=== PATIENT | male | born 1950 | race Caucasian/White ===

== ENCOUNTER → 2019-08-31 08:15 | Outpatient (BNVA) | payer MEDICARE, SELFPAY | PROVIDERS: Family Provider Registered Nurse; PCP Registered Nurse; Visit Provider Urology | DX: N39.9 Disorder of urinary system, unspecified (principal); N31.8 Other neuromuscular dysfunction of bladder; R97.20 Elevated prostate specific antigen [PSA] | CPT/HCPCS: 84153 ==

== ENCOUNTER → 2019-09-23 09:59 | Outpatient (BNVA) | payer MEDICARE, SELFPAY | PROVIDERS: Family Provider Registered Nurse; PCP Registered Nurse; Visit Provider Registered Nurse | DX: E78.5 Hyperlipidemia, unspecified (principal); E78.6 Lipoprotein deficiency | CPT/HCPCS: 80053; 80061 ==

== ENCOUNTER → 2020-04-05 17:55 | Outpatient (BNVA) | payer MEDICARE, SELFPAY | PROVIDERS: Family Provider Registered Nurse; PCP Registered Nurse; Visit Provider Urology | DX: R97.20 Elevated prostate specific antigen [PSA] (principal); N31.8 Other neuromuscular dysfunction of bladder; R82.71 Bacteriuria | CPT/HCPCS: 80053; 81001; 84153; 87077; 87086; 87186 ==

== ENCOUNTER → 2020-05-04 11:10 | Outpatient (BNVA) | payer MEDICARE, SELFPAY | PROVIDERS: Family Provider Registered Nurse; PCP Registered Nurse; Visit Provider Urology | DX: R82.71 Bacteriuria (principal) | CPT/HCPCS: 80053; 87077; 87086; 87186 ==

== ENCOUNTER → 2020-08-21 08:42 | Outpatient (BNVA) | payer MEDICARE, SELFPAY | PROVIDERS: Family Provider Registered Nurse; PCP Registered Nurse; Visit Provider Registered Nurse | DX: Z13.6 Encounter for screening for cardiovascular disorders (principal); E78.5 Hyperlipidemia, unspecified; R33.9 Retention of urine, unspecified; J41.0 Simple chronic bronchitis; N39.0 Urinary tract infection, site not specified; E78.2 Mixed hyperlipidemia; Z78.9 Other specified health status; N31.8 Other neuromuscular dysfunction of bladder; R97.20 Elevated prostate specific antigen [PSA]; R82.71 Bacteriuria; N40.1 Benign prostatic hyperplasia with lower urinary tract symptoms | CPT/HCPCS: 80053; 80061; 81000; 84153; 85025; 87077; 87086; 87184 ==

== ENCOUNTER → 2020-10-04 09:12 | Outpatient (BNVA) | payer MEDICARE, SELFPAY | PROVIDERS: Family Provider Registered Nurse; PCP Registered Nurse; Visit Provider Urology | DX: R97.20 Elevated prostate specific antigen [PSA] (principal); A49.9 Bacterial infection, unspecified; N39.0 Urinary tract infection, site not specified; R82.71 Bacteriuria; N31.8 Other neuromuscular dysfunction of bladder | CPT/HCPCS: 81003; 84153 ==

== ENCOUNTER → 2020-10-19 09:52 | Outpatient (BNVA) | payer MEDICARE, SELFPAY | PROVIDERS: Family Provider Registered Nurse; PCP Registered Nurse; Visit Provider Registered Nurse | DX: J41.0 Simple chronic bronchitis (principal); Z20.822 Contact with and (suspected) exposure to COVID-19; J06.9 Acute upper respiratory infection, unspecified; F17.210 Nicotine dependence, cigarettes, uncomplicated | CPT/HCPCS: 87635 ==

== ENCOUNTER → 2020-10-27 12:46 | Outpatient (BNVA) | payer MEDICARE, SELFPAY | PROVIDERS: Family Provider Registered Nurse; PCP Registered Nurse; Visit Provider Urology | DX: R97.20 Elevated prostate specific antigen [PSA] (principal) | CPT/HCPCS: 88305 ==

== ENCOUNTER 2020-11-10 07:29 | Outpatient (CLI) | payer MEDICARE, SELFPAY ==
--- NOTE | 2020-11-10 07:36 | NM_ITS ---
WS: [id number] NUCLEAR MEDICINE WHOLE BODY BONE SCAN HISTORY: PROSTATE CANCER COMPARISON: None available. TECHNIQUE: The patient was injected with 25.5 mCi of Technetium 99m HDP and serial whole-body scintig huong have been performed with anterior and posterior images. Focal moderate uptake in the cervical spine on the RIGHT near C4-5. Radiograph was performed today an d this corresponds to facet joint arthritis. Otherwise no bone or rib lesions appreciated to suspect metastatic bone disease. Moderate AC joint and glenohumeral joint and knee joint and wrist joint arth ritis. Pelvis is negative. Normal soft tissue uptake is normal renal uptake. NM/NM bone scan whole body* 19703 IMPRESSION: 1. Moderate uptake in the RIGHT cervical spine at C4-5 corresponds to radiogra phic evidence for facet joint arthritis. 2. No evidence for metastatic bone disease.
--- NOTE | 2020-11-10 09:00 | CT_ITS ---
WS: [id number] CT ABDOMEN AND PELVIS WITH AND WITHOUT CONTRAST HISTORY: PROSTATE CANCER TECHNIQUE: Unenhanced 5 mm axial imaging first performed through the abdomen. Post contrast imaging t hrough the abdomen and pelvis. Oral contrast has not been provided. Sagittal and coronal reformats a re submitted. All CT scans at [facility] use at least one of these dose optimization tech niques: automated exposure control; mA and/or kV adjustment per patient size (includes targeted exams where dose is matched to clinical indication); or iterative reconstruction. CONTRAST: Omnipaque 300; 95 mL IV. DLP: 1882.75 mGy.cm COMPARISON: 10/18/2014 Marked hyperexpansion and emphysematous changes at the lung bases. Heart size is normal. Moderate cor onary artery calcifications. Small hiatal hernia. Normal liver and gallbladder. Splenic granulomatous with normal size spleen. No pancreas abnormality. No bile duct dilatation. Normal adrenal glands. Abdominal aorta: Moderate dilatation of the abdominal aorta. Maximum diameter of 3.7 cm in the infrar enal aorta. Aneurysm extends over a length of 5.5 cm. There is near circumferential thrombus and inti mal thickening. Asymmetric intimal thickening measures 9.4 mm over the posterior LEFT lateral aorta. The lumen remains widely patent. Mild atherosclerosis involving the origins of the celiac axis and SM A. Normal renal arteries. RADHA may be occluded. RIGHT kidney: 9.6 cm in length. Hypoattenuating mass from the upper pole measures 1.5 cm, new lesion. There is mild enhancement. There is an additional 1.7 cm hypoattenuating mass which is probably a cy st from the medial upper pole, new. There is a larger cyst measuring 2.5 x 3.0 cm from the posterior mid kidney which is stable. No obstruction or ureteral dilatation. LEFT kidney: 8.6 cm in length. No hydronephrosis or mass. No renal obstruction. Urinary bladder: Moderately distended urinary bladder. There is moderate diffuse wall thickening rafy uring up to 8 mm on the RIGHT. No focal area of enhancement. The asymmetry is slightly greater on the RIGHT. Prostate gland is enlarged indenting into the posterior bladder. Prostate gland extends over length of 5.7 cm x 4.6 x 4.2 cm. There is mild diffuse enhancement within the prostate. The appendix is normal. Diffuse moderate constipation. Mild sigmoid diverticulosis without acute dive rticulitis. No adenopathy. Advanced degenerative disc disease at L4-5 and L5-S1. L3 anterolisthesis by [address]/CT abdomen pelvis wo/w [id number] IMPRESSION: 1. No evidence for osteoblastic prostate metastatic disease. 2. Infrarenal abdominal aortic aneurysm with a maximum diameter 3.7 cm. Aneury sm is new since 2014. Recommend imaging follow-up for 3.7 cm abdominal aorta an eurysm is 2 years. 3. Enhancing mass in the upper pole of the RIGHT kidney is new since 2014 susp icious but not confirmatory for renal cell neoplasm. Maximum diameter of 1.5 cm . Additional indeterminate mass probably cysts in the medial upper pole RIGHT k idney. Recommend renal mass CT protocol follow-up in 6-12 months. Stability nee ds to be documented. 4. No renal obstruction. 5. Sigmoid diverticulosis. 6. Mild diffuse bladder wall thickening is probably on the basis of outlet obs truction.
[2020-11-10 09:01] LABS: Blood Urea Nitrogen 15 mg/dL (8-23); Glomerular Filtration Rate 66.4 mL/min (90-130)
[2020-11-10] MEDS: iohexol 300 mg/mL 100 mL Btl IV (09:15)
--- NOTE | 2020-11-10 10:14 | XR_ITS ---
WS: [id number] CERVICAL SPINE 3 VIEWS HISTORY: BONE SCAN COMPARISON 2 VIEWS COMPARISON: Bone scan 11/10/2020. Focal area of abnormal uptake on the bone scans corresponds to significant facet joint arthritis on t he RIGHT at C4-5. There is significant facet joint arthritis bilaterally. No fractures. Lateral masses of C1 and C2 are aligned. Significant disc space narrowing at C4-5, C5-6 and C6-7 with endplate osteophytes. XR/XR cervical spine 3V* [id number] IMPRESSION: Bilateral facet joint arthritis. Greatest on the RIGHT at C4-5. Corresponds to the abnormality on recent bone scan. No destructive bone process identified.
== END 2020-11-10 07:30 | disposition home or self-care (01) ==
LOC: CT 07:31
PROVIDERS: PCP Registered Nurse; Visit Provider Urology
DX: C61 Malignant neoplasm of prostate (principal); K57.30 Diverticulosis of large intestine without perforation or abscess without bleeding; N28.89 Other specified disorders of kidney and ureter
CPT/HCPCS: 36415; 72040; 74178; 78306; 82565; 84520; A9561

== ENCOUNTER 2020-11-20 09:43 | Outpatient (CLI) | payer MEDICARE, SELFPAY ==
[2020-11-20 13:09] LABS: Testosterone Total 671.3 ng/dL (193-740)
--- NOTE | 2020-11-20 15:28 | ONC CON_ITS ---
Dr. Espino New Patient Note Patient: Yahaira Reyes Unit #: [id number]: 1950 Dicatated By: Ian Espino M.D.Date of Visit: Nov 20, 2020 Onc MED New Patient/Consult Referring Physician: Dr. Masood Baca M.D. History of Present Illness: Mr. Yahaira Reyes, is a 70-year-old gentleman with longstanding history of mildly elevated PSA, first evaluated was in February 2009 for increased PSA at 4.46 and with positive family history of prostate cancer at that time his VARINDER was 3+ and patient underwent TRUS P in February 2009 which showed mild chronic inflammation but no evidence of malignancy since then during follow-up his PSA was ranging from 3.8-7.8 and patient was managed for BPH as well as recurrent urinary tract infection and episode of hematuria for which he underwent cystoscopy showed no abnormality. And recently in October 2020 his follow-up PSA had increased to 10.8 and on VARINDER patient was found to have new development of right-sided firmness for which on October 27, 2020 he underwent TRUSP/biopsy which showed large volume, high-grade prostate cancer pathology confirmed 6 out of 11 biopsies positive for adenocarcinoma all on the right side, all with Segun score 5+5, on November 10, 2020 he underwent bone scan as well as CT scan of abdomen pelvis which showed no evidence of metastatic bone disease but moderate uptake in the right cervical spine C4-5 and x-ray of C-spine done on November 10, 2020 confirmed bilateral facet joint arthritis correspond to abnormality seen on bone scan. And no pelvic lymphadenopathy, infrarenal abdominal aortic aneurysm with a maximum diameter of 3.7 and aneurysm is new since 2014. Enhancing mass in the upper pole of right kidney is new since 2015 size 1.5 cm., Patient denies any bone pain, but use catheter for urination, denies any weight loss denies any fever or chills denies any nausea or vomiting diarrhea constipation. Past Medical History: Mr. Cruz medical history consists of hyperlipidemia and inguinal hernia. Past Surgical History: Mr. Cruz surgical/procedural history consists of knee surgery and L3-L4 laminectomy. Medications: Albuterol Sulfate HFA 2 Puff(s) (of 108 (90 base) mcg/act) Aerosol, solution Inhalation q 6 hours, Allergy 1 Tablet (of 10 mg) Oral daily, Ascorbic Acid 1 Tablet (of 500 mg) Tablet, chewable Oral b.i.d., Budesonide-Formoterol Fumarate 2 Puff(s) (of 160-4.5 mcg/act) Aerosol Inhalation b.i.d., Finasteride 1 Tablet (of 5 mg) Oral daily, Methenamine Hippurate 1 Tablet (of 1 g) Oral b.i.d., Pravachol 1 Tablet (of 40 mg) Oral daily, Saw [place] 1 Caplet (of 450 mg) Capsule Oral daily, Zinc 1 Caplet (of 15 mg) Capsule Oral daily Allergies: No Known Allergies. Social History: Mr. Reyes is . He is a daily smoker who smokes 2.0 packs/day. He has no history of drinking. He has indicated exposure to the following products: cigarettes. Smokes Cigars and Cigarettes Daily. Family History: Mr. Reyes's mother at age 60: coronary artery disease, and chronic obstructive pulmonary disease. Mr. Reyes's father at age 70: Cancer. Mr. Reyes has 1 sister who is alive. Review Of Symptoms: Review of Systems is not available for this patient. Vital Signs: Performed on Nov 20, 2020 10:49: 0, 0, 0.00, 0.00 sq.m, 97 %, 60 /min, 18 /min, 116/75 mm(hg), 98.0 F (LOW), and 162.4 lbs (HIGH). Performance Status: 0 - Fully active, able to carry on all predisease activities without restrictions. (ECOG) Physical Examination: ENMT - No mouth sores, no thrush, no jaundice, Respiratory - Lungs are clear to auscultation, Cardiovascular - Regular rate and rhythm of heart, Abdomen - Soft, bowel sounds present, Extremities - No visible edema. Lab/Imaging: Most recent lab results are not available for this patient. Impression: High-grade, large volume adenocarcinoma prostate per TRUSP/biopsy of right side prostate gland, done on October 27, 2020 Final pathology report confirmed 6 out of 11 biopsy positive for CHARGE ACCOUNT CLERK, with percent of involvement ranging from 50% to 100% with all Segun score 5+5 cT2a or 2b ,Nx,Mx Very high risk (> 4 cores involved, Segun score 5+5) Plan: Discussed with patient regarding his pathology, bone scan and CT scan of abdomen pelvis findings which showed no evidence of metastatic disease but pathology confirmed, right sided prostate gland involvement , 6 out of 11 biopsies were positive for malignancy , percent ranging from 50% to 100% with Segun score 5+5 in all core biopsies which will make him very high risk. Treatment options including surgery versus ADT for 1 to 3 years plus EBRT plus minus docetaxel or EBRT plus brachytherapy plus ADT for 1 to 3 years., As per patient's discussion with Dr. Baca urologist, surgery upfront may not be an appropriate Option, moreover, patient is interested in hormonal therapy / radiation therapy, May consider chemotherapy too All the side effects, possible benefits associated with ADT with Casodex/Zoladex including but not limited to hot flashes, weight gain, mood swings, gynecomastia, bone demineralization, muscle wasting were mentioned and patient expressed full understanding and accepted the treatment, will give him prescription for Casodex 50 mg p.o. daily which he will continue during radiation therapy and also consider starting with Zoladex 10.8 mg every 3 months, will refer him to radiation oncology for evaluation and once radiation therapy is concluded, will consider docetaxel every 3 weeks 4-6 cycles and While he will continue with Zoladex alone for 1 to 3 years., In the meantime , we will obtain baseline testosterone and PSA level. Patient return to clinic 1 month after dose of Zoladex with CBC CMP PSA and testosterone Signed By: Ian Espino M.D. <<Signature on File>>
== END 2020-11-20 09:44 | disposition home or self-care (01) ==
PROVIDERS: PCP Registered Nurse; Visit Provider Internal Medicine Hematology & Oncology
DX: C61 Malignant neoplasm of prostate (principal); R97.20 Elevated prostate specific antigen [PSA]; Z79.899 Other long term (current) drug therapy
CPT/HCPCS: 36415; 84153; 84403; 99205

== ENCOUNTER 2020-11-27 07:03 | Outpatient (CLI) | payer MEDICARE, SELFPAY ==
--- NOTE | 2020-11-27 14:00 | N.ONRAD NP_ITS ---
Radiation Oncology Consultation Patient Name: Yahaira Reyes Date of : 1950 Date of Service: 11/27/2020 Attending Physician: Freddy Petersen M.D. Yahaira Reyes was seen in consultation this afternoon at the request of Manjit Espino M.D. for consideration of prostate radiotherapy for the management of his recently diagnosed prostate cancer. He initially was identified to have an elevated PSA level (4.5 ng/mL) in February 2009. A transrectal ultrasound-guided biopsy was negative for malignancy. His PSA values remained relatively stable until a PSA obtained in September of 2020 was identified to be 14.1 ng/mL. Digital rectal exam identified right sided firmness. A TRUS biopsy performed on October 27, 2020 demonstrated a prostate gland measuring 50 cc with right lobar hypoechoic lesions present. Pathology (report personally reviewed in [employer]) diagnosed and adenocarcinoma the prostate gland symptom score of 5+5 = 10 involving the right lateral apex, right lateral mid gland, right lateral base, right apex, right mid gland, and right base, respectively. Perineural and fat/muscle invasion was described. A nuclear medicine bone scintigraphy scan and an abdominopelvic CT scan (independently visualized in [facility]) were negative for metastatic disease. The patient presents for radiotherapeutic options. I discussed with Mr. Reyes the AJCC clinical stage IIIC (T2bN0) very high-risk stratification corresponding to his prostate cancer. I also reviewed the National Comprehensive Cancer Network Guidelines recommending androgen deprivation therapy, external beam radiotherapy with or without brachytherapy and consideration for docetaxel chemotherapy. The admonition by the NCCN was established by the RTOG 0521 trial that enrolled patients with high-risk non-metastatic prostate cancer to receive androgen suppression plus radiotherapy with or without adjuvant docetaxel chemotherapy. This study demonstrated improved overall survival and disease-free survival in the chemotherapy arm. I also reviewed GETUG???12 study which also enrolled high-risk localized prostate cancer patients to androgen suppression and docetaxel chemotherapy with estramustine or androgen suppression alone. Updated results published in abstract form continued to demonstrate a relapse free survival with the administration of chemotherapy. I would endorse a 7-1/2 week course of pelvic and prostate radiotherapy. Prior to commencement of radiotherapy, neoadjuvant total androgen suppression (Zoladex and Casodex) will be prescribed. A radiotherapy planning CT scan with contrast will be obtained to delineate the target volumes. Germline genetic testing will be ordered on account of patient???s very-high risk stratification. I also discussed potential adverse events related to pelvic radiotherapy. The patient has verbalized understanding would like to proceed as advised. His medical treatment plan was discussed with Manjit Espino M.D. Signed by: Dr. Freddy Petersen 11/27/2020 2:07:01 PM
[2020-11-27] MEDS: lidocaine 1% INJ 20 mL INJECTION (14:20)
[2020-11-27] MEDS: goserelin acetate 10.8 mg Implant IM (14:35)
== END 2020-11-27 07:04 | disposition home or self-care (01) ==
PROVIDERS: Absent Provider Radiology Radiation Oncology; PCP Registered Nurse; Visit Provider Internal Medicine Hematology & Oncology
DX: C61 Malignant neoplasm of prostate (principal); R97.20 Elevated prostate specific antigen [PSA]; Z79.818 Long term (current) use of other agents affecting estrogen receptors and estrogen levels; Z79.899 Other long term (current) drug therapy
CPT/HCPCS: 96372; 96402; 99205; J9202

== ENCOUNTER 2020-12-18 13:44 | Outpatient (CLI) | payer MEDICARE, SELFPAY ==
[2020-12-18 14:44] LABS: Hematocrit 43.3 % (42.0-52.0); Hemoglobin 14.4 g/dL (11.7-16.6); Mean Corpuscular HGB Conc 33.3 g/dL (30.0-36.0); Mean Corpuscular Hemoglobin 30.4 pg (28.0-34.0); Mean Corpuscular Volume 91.5 fL (80-94); Mean Platelet Volume 10.3 fL (7.4-10.4); Platelet Count 283 10^3/cmm (130-400); Red Blood Count 4.73 10^6/uL (4.1-5.3); Red Cell Distribution Width 14.1 % (12.1-15.1); White Blood Count 9.1 10^3/uL (4.0-10.0)
[2020-12-18 15:17] LABS: Absolute Eosinophils 0.1 10^3/cmm (0.0-0.7); Absolute Neutrophil 4.8 10^3/cmm (1.4-6.5); Absolute Segmented Neutrophil 4.8 10/cmm (1.6-7.1); Eosinophils 2 %; Lymphocytes 40 %; Lymphocytes Absolute 3.8 10^3/cmm (1.2-3.4); Platelet Estimate Normal (Normal); Segmented Neutrophils 53 %; Slide Review Slide Review Perform; Total Cells Counted 100 (0-100)
[2020-12-18 15:27] LABS: Testosterone Total 11.2 ng/dL (193-740)
[2020-12-18 15:41] LABS: Alanine Aminotransferase 20 U/L (0-41); Albumin Level 4.2 g/dL (3.5-5.2); Alkaline Phosphatase 61 IU/L (40-130); Anion Gap 17.2 (5-19); Aspartate Amino Transferase 22 U/L (0-40); Blood Urea Nitrogen 16 mg/dL (8-23); Calcium 8.4 mg/dL (8.5-10.5); Carbon Dioxide 23 mmol/L (22-29); Chloride 102 mmol/L (98-107); Glucose 88 mg/dL (65-115); Osmolality Calculated 287 mOsm/kg (285-295); Potassium 4.2 mmol/L (3.5-5.1); Sodium 138 mmol/L (136-145); Total Bilirubin 0.3 mg/dL (0.15-1.2); Total Protein 7.2 g/dL (6.6-8.7)
--- NOTE | 2020-12-18 17:07 | ONC FU_ITS ---
Dr. Espino follow up note Patient: Yahaira Reyes Unit #: [id number]: 1950 Dicatated By: Ian Espino M.D.Date of Visit:December 18, 2020 Onc Med Follow-up/Prog Note History of Present Illness: Mr. Yahaira Reyes, is a 70-year-old gentleman with longstanding history of mildly elevated PSA, first evaluated was in February 2009 for increased PSA at 4.46 and with positive family history of prostate cancer at that time his VARINDER was 3+ and patient underwent TRUS P in February 2009 which showed mild chronic inflammation but no evidence of malignancy since then during follow-up his PSA was ranging from 3.8-7.8 and patient was managed for BPH as well as recurrent urinary tract infection and episode of hematuria for which he underwent cystoscopy showed no abnormality. And recently in October 2020 his follow-up PSA had increased to 10.8 and on VARINDER patient was found to have new development of right-sided firmness for which on October 27, 2020 he underwent TRUSP/biopsy which showed large volume, high-grade prostate cancer pathology confirmed 6 out of 11 biopsies positive for adenocarcinoma all on the right side, all with Independence score 5+5, on November 10, 2020 he underwent bone scan as well as CT scan of abdomen pelvis which showed no evidence of metastatic bone disease but moderate uptake in the right cervical spine C4-5 and x-ray of C-spine done on November 10, 2020 confirmed bilateral facet joint arthritis correspond to abnormality seen on bone scan. And no pelvic lymphadenopathy, infrarenal abdominal aortic aneurysm with a maximum diameter of 3.7 and aneurysm is new since 2014. Enhancing mass in the upper pole of right kidney is new since 2014 size 1.5 cm., Patient denies any bone pain, but use catheter for urination, denies any weight loss denies any fever or chills denies any nausea or vomiting diarrhea constipation. Started on Zoladex 10.8 mg along with Casodex on November 27, 2020 Came for follow-up, denies any specific complaints except occasionally hot flashes otherwise no fever chills, no nausea or vomiting, no diarrhea or constipation, patient is scheduled see radiation oncology for concurrent radiation therapy. Tolerating Casodex/Zoladex well otherwise Medications: Albuterol Sulfate HFA 2 Puff(s) (of 108 (90 base) mcg/act) Aerosol, solution Inhalation q 6 hours, Allergy 1 Tablet (of 10 mg) Oral daily, Ascorbic Acid 1 Tablet (of 500 mg) Tablet, chewable Oral b.i.d., Budesonide-Formoterol Fumarate 2 Puff(s) (of 160-4.5 mcg/act) Aerosol Inhalation b.i.d., Finasteride 1 Tablet (of 5 mg) Oral daily, Methenamine Hippurate 1 Tablet (of 1 g) Oral b.i.d., Pravachol 1 Tablet (of 40 mg) Oral daily, Saw [place] 1 Caplet (of 450 mg) Capsule Oral daily, Terazosin HCl 1 Capsule (of 2 mg) Oral daily, Zinc 1 Caplet (of 15 mg) Capsule Oral daily Allergies: No Known Allergies. Review of Systems: Review of Systems is not available for this patient. Vital Signs: Performed on December 18, 2020 16:06 Height - 67.00 in Weight - 157 lbs (LOW) BSA - 1.82 sq.m BMI - 24.59 Temperature - 97.8 F (LOW) Pulse - 62 /min Respiration - 18 /min BP - 124/82 mm(hg) O2 Sat - 96 % Pain - 0 Fatigue - 0 Performance Status: 0 - Fully active, able to carry on all predisease activities without restrictions. (ECOG) Physical Examination: ENMT - No mouth sores, no thrush, no jaundice, Respiratory - Lungs are clear to auscultation, Cardiovascular - Regular rate and rhythm of heart, Abdomen - Soft, bowel sounds present, Extremities - No visible edema or rash. Lab/Imaging: Most recent lab results are not available for this patient. Impression: High-grade, large volume adenocarcinoma prostate per TABATHA SP/biopsy of right side prostate gland, done on October 27, 2020 confirmed 6 out of 11 biopsy positive for TIME LOCK EXPERT, with percent of involvement ranging from 50% to 100% with all Independence score 5+5 Very high risk Started on 3 monthly Zoladex along with Casodex on November 27, 2020 Plan: Discussed with patient regarding his labs white blood count 9.1 hemoglobin 14.4 hematocrit 43.3 platelets 283,000 CMP within normal limits PSA 1.7 compared to 14.07 on November 20, 2020 Clinically, patient is doing well with no new signs symptom suggestive of disease progression his follow-up labs shows significant drop in PSA level now 1.7 compared to 14.07 prior to ADT Patient is tolerating 3 monthly Zoladex and daily Casodex well his lab work-up is within normal range, patient will see radiation oncology to start concurrent radiation therapy to the prostate and then he will return to clinic 2 months with CBC CMP/PSA Signed By: Ian Espino M.D. <<Signature on File>>
== END 2020-12-18 13:45 | disposition home or self-care (01) ==
PROVIDERS: PCP Registered Nurse; Visit Provider Internal Medicine Hematology & Oncology
DX: C61 Malignant neoplasm of prostate (principal); R97.20 Elevated prostate specific antigen [PSA]; Z79.899 Other long term (current) drug therapy
CPT/HCPCS: 36415; 80053; 84153; 84403; 85007; 85025; 99214

== ENCOUNTER 2021-01-09 06:22 | Outpatient (RCR) | payer MEDICARE, SELFPAY ==
--- NOTE | 2021-01-09 | CT_ITS ---
Radiation Therapy Planning CT images; total exam DLP: 1525.03 mGy-cm MTDD
== END 2021-01-24 23:59 | disposition home or self-care (01) ==
LOC: ONCMED 06:22
PROVIDERS: PCP Registered Nurse; Visit Provider Radiology Radiation Oncology
DX: Z51.0 Encounter for antineoplastic radiation therapy (principal); C61 Malignant neoplasm of prostate; Z79.899 Other long term (current) drug therapy
CPT/HCPCS: 77300; 77301; 77334; 77338; 77470

== ENCOUNTER 2021-02-23 08:34 | Outpatient (RCR) | payer MEDICARE, SELFPAY ==
--- NOTE | 2021-01-30 09:42 | ONCRAD TMN_ITS ---
Radiation Oncology Treatment Management Note Patient Name: Yahaira Reyes Date of : 1950 Date of Service: 01/30/2021 Attending Physician: Freddy Petersen M.D. Yahaira Reyes is a 70 year old white male diagnosed with a clinical stage IIIC (T2bN0) very high-risk stratification prostate cancer. A TRUS biopsy performed on October 27, 2020 demonstrated a prostate gland measuring 50 cc with right lobar hypoechoic lesions present diagnosed an adenocarcinoma of the prostate gland with a Segun score of 5+5 = 10 involving the right lateral apex, right lateral mid gland, right lateral base, right apex, right mid gland, and right base, respectively. Perineural and fat/muscle invasion was described. The patient has received ADT (Casodex was prescribed on November 20 and Zoladex was administered on November 27). The patient has received 6 Gy of a prescribed 46 Kohli to the prostate and regional lymph nodes with an intensity modulated radiotherapy plan utilizing a step and shoot treatment technique. An additional 32 Kohli will be delivered to the prostate gland subsequent to the initial robles. He has received neoadjuvant hormonal therapy. Upon review of systems, he denied any gastrointestinal or genitourinary complaints related to radiotherapy. On physical examination, the patient weighed 160 lbs. His temperature was 97.5 ???F with a blood pressure of 129/88 mmHg. The pulse was 61 bpm and his respiratory rate was 20. There was no erythema within the treatment robles. Continue pelvic radiotherapy as prescribed. Signed by: Dr. Freddy Petersen 01/30/2021 9:39:51 AM
--- NOTE | 2021-02-05 09:43 | ONCRAD TMN_ITS ---
Radiation Oncology Treatment Management Note Patient Name: Yahaira Reyes Date of : 1950 Date of Service: 02/05/2021 Attending Physician: Freddy Petersen M.D. Yahaira Reyes is a 70 year old white male diagnosed with a clinical stage IIIC (T2bN0) very high-risk stratification prostate cancer. A TRUS biopsy performed on October 27, 2020 demonstrated a prostate gland measuring 50 cc with right lobar hypoechoic lesions present diagnosed an adenocarcinoma of the prostate gland with a Segun score of 5+5 = 10 involving the right lateral apex, right lateral mid gland, right lateral base, right apex, right mid gland, and right base, respectively. Perineural and fat/muscle invasion was described. The patient has received ADT (Casodex was prescribed on November 20 and Zoladex was administered on November 27). The patient has received 14 Gy of a prescribed 46 Kohli to the prostate and regional lymph nodes with an intensity modulated radiotherapy plan utilizing a step and shoot treatment technique. An additional 32 Kohli will be delivered to the prostate gland subsequent to the initial robles. He has received neoadjuvant hormonal therapy. Upon review of systems, he denied any gastrointestinal or genitourinary complaints related to radiotherapy. He described constipation. On physical examination, the patient weighed 159 lbs. His temperature was 97.4 ???F with a blood pressure of 120/86 mmHg. The pulse was 60 bpm and his respiratory rate was 18. There was no erythema within the treatment robles. Continue pelvic radiotherapy as planned. Recommend generic MiraLax. Signed by: Dr. Freddy Petersen 02/05/2021 9:40:40 AM
--- NOTE | 2021-02-12 10:50 | ONCRAD TMN_ITS ---
Radiation Oncology Weekly Treatment Management Patient: Eric Whyte MR#: [id number] : 1950> Attending Physician: Dr. Jose E Johnson Date of Service: 02/12/2021 Referring Physician(s) : Dr. Masood Baca Diagnosis: C61 - Malignant neoplasm of prostate, Diagnosed 10/27/2020 (Active) Stage IIIC, T2b, N0, M0, P>=10<20, G5 Radiotherapy to date: Course: Prostate 2020, Treatment Site: Prostate Ca, Ref. ID: [id number], Energy: 15X, Dose/Fx (cGy): 200, #Fx: , Dose Correction (cGy): 0, Total Dose (cGy): 2,400, Start Date: 01/25/2021, Elapsed Days: 18 Reason for visit: The patient is being seen today as part of their regularly scheduled weekly on treatment visits to assess for acute toxicities from radiotherapy. Review of Systems: Performance status is essentially stable with very slight fatigue and slight falloff in appetite. He has occasional diarrhea which responds well to Imodium. He is stable with regard to the bladder. He has no unusual discomfort. He has been self catheterizing for at least a few years and that is going well. Vital Signs: Performed on 02/12/2021 9:23 AM BMI - 24.84 kg/m2 (high), Height - 67.00 in, Weight - 158.6 lbs, Temperature - 97.2 f, Pulse - 65, Respiration - 18, O2 Sat - 98 %, Pain - 0 and BP - 118/ 79 mm(hg). Physical Exam: Alert, oriented, no acute distress. Imaging: Radiation therapy imaging related to accurate target localization (i.e. KV, MV and CBCT) was reviewed. Appropriate changes, if any, were made to ensure treatment accuracy. Plan: Continue treatment according to plan. He had no questions about the treatment process. We discussed that his follow-up will primarily be through physical exam and PSA. Signed by: Dr. Jose E Johnson 02/12/2021 10:48:56 AM
--- NOTE | 2021-02-19 10:32 | ONCRAD TMN_ITS ---
Radiation Oncology Weekly Treatment Management Patient: Isabell Reyes MR#: [id number] : 1950> Attending Physician: Dr. Jose E Johnson Date of Service: 02/19/2021 Referring Physician(s) : Dr. Masood Baca Diagnosis: C61 - Malignant neoplasm of prostate, Diagnosed 10/27/2020 (Active) Stage IIIC, T2b, N0, M0, P>=10<20, G5 Radiotherapy to date: Course: Prostate 2020, Treatment Site: Prostate Ca, Ref. ID: [id number], Energy: 15X, Dose/Fx (cGy): 200, #Fx: , Dose Correction (cGy): 0, Total Dose (cGy): 3,400, Start Date: 01/25/2021, Elapsed Days: 25 Reason for visit: The patient is being seen today as part of their regularly scheduled weekly on treatment visits to assess for acute toxicities from radiotherapy. Review of Systems: Mr. Reyes feels well and has no complaints at all. His appetite and activity level are basically normal. He has no bowel complaints. He continues to catheterize his bladder as he has done for years. He typically changes catheters twice per month but is contemplating changing earlier because the catheter he is currently using is not passing into the bladder is smoothly is normal. Vital Signs: Performed on 02/19/2021 9:12 AM BMI - 24.465 kg/m2 (high), Height - 67.00 in, Weight - 156.2 lbs, Temperature - 96.9 f, Pulse - 62, Respiration - 18, O2 Sat - 97 %, Pain - 0, Fatigue - 0 and BP - 118/ 73 mm(hg). Physical Exam: Alert, oriented, no acute distress. He has no skin reaction in the intergluteal fold. The skin of the anterior pelvis, inguinal areas, and upper genitalia has faint erythema. No hair loss. Imaging: Radiation therapy imaging related to accurate target localization (i.e. KV, MV and CBCT) was reviewed. Appropriate changes, if any, were made to ensure treatment accuracy. Plan: Continue treatment as planned. No questions. I did discuss with Mr. Reyes that the catheter he is currently using may not be defective and that the slight increase in difficulty with catheterization may be due to swelling in the prostate. Signed by: Dr. Jose E Johnson 02/19/2021 10:30:41 AM
== END 2021-02-24 23:59 | disposition home or self-care (01) ==
LOC: ONCMED 08:34
PROVIDERS: PCP Registered Nurse; Visit Provider Specialist
DX: Z51.0 Encounter for antineoplastic radiation therapy (principal); C61 Malignant neoplasm of prostate; R97.20 Elevated prostate specific antigen [PSA]; Z79.899 Other long term (current) drug therapy
CPT/HCPCS: 77014; 77336; 77385

== ENCOUNTER 2021-03-21 05:49 | Outpatient (RCR) | payer MEDICARE, SELFPAY ==
--- NOTE | 2021-02-26 09:32 | ONCRAD TMN_ITS ---
Radiation Oncology Treatment Management Note Patient Name: Yahaira Reyes Date of : 1950 Date of Service: 02/26/2021 Attending Physician: Freddy Petersen M.D. Yahaira Reyes is a 70 year old white male diagnosed with a clinical stage IIIC (T2bN0) very high-risk stratification prostate cancer. A TRUS biopsy performed on October 27, 2020 demonstrated a prostate gland measuring 50 cc with right lobar hypoechoic lesions present diagnosed an adenocarcinoma of the prostate gland with a Segun score of 5+5 = 10 involving the right lateral apex, right lateral mid gland, right lateral base, right apex, right mid gland, and right base, respectively. Perineural and fat/muscle invasion was described. The patient has received ADT (Casodex was prescribed on November 20 and Zoladex was administered on November 27). The patient has received 44 Gy of a prescribed 46 Kohli to the prostate and regional lymph nodes with an intensity modulated radiotherapy plan utilizing a step and shoot treatment technique. An additional 32 Kohli will be delivered to the prostate gland subsequent to the initial robles. He has received neoadjuvant hormonal therapy. Upon review of systems, he denied any gastrointestinal or genitourinary complaints related to radiotherapy. On physical examination, the patient weighed 156 lbs. His temperature was 97.6 ???F with a blood pressure of 117/82 mmHg. The pulse was 61 bpm and his respiratory rate was 18. There was no erythema within the treatment robles. Continue pelvic radiotherapy as prescribed. Signed by: Dr. Freddy Petersen 02/26/2021 9:30:00 AM
[2021-02-27 11:32] LABS: Basophils % 0.8 %; Eosinophils # 0.6 10^3/uL (0.0-0.8); Eosinophils % 13.2 %; Hematocrit 43.6 % (42.0-52.0); Hemoglobin 14.5 g/dL (11.7-16.6); Lymphocytes # 0.7 10^3/uL (0.8-4.8); Lymphocytes % 14.4 %; Mean Corpuscular HGB Conc 33.3 g/dL (30.0-36.0); Mean Corpuscular Volume 93.2 fL (80-94); Mean Platelet Volume 9.4 fL (7.4-10.4); Monocytes # 0.5 10^3/uL (0.2-0.9); Monocytes % 9.8 %; Neutrophils % 60.5 %; Nucleated Red Blood Cells % 0 %; Platelet Count 219 10^3/cmm (130-400); Red Blood Count 4.68 10^6/uL (4.1-5.3); Red Cell Distribution Width 15.2 % (12.1-15.1); White Blood Count 4.8 10^3/uL (4.0-10.0)
[2021-02-27 12:30] LABS: Prostate Specific Antigen 0.108 ng/mL (0-4); Testosterone Total 2.5 ng/dL (193-740)
[2021-02-27 12:41] LABS: Alanine Aminotransferase 12 U/L (0-41); Alkaline Phosphatase 70 IU/L (40-130); Anion Gap 12.4 (5-19); Aspartate Amino Transferase 15 U/L (0-40); Blood Urea Nitrogen 12 mg/dL (8-23); Calcium 8.3 mg/dL (8.5-10.5); Carbon Dioxide 26 mmol/L (22-29); Chloride 100 mmol/L (98-107); Globulin 2.7 g/dL (1.3-4.6); Glomerular Filtration Rate 74.1 mL/min (90-130); Glucose 80 mg/dL (65-115); Osmolality Calculated 277 mOsm/kg (285-295); Potassium 4.4 mmol/L (3.5-5.1); Sodium 134 mmol/L (136-145); Total Bilirubin 0.3 mg/dL (0.15-1.2); Total Protein 6.7 g/dL (6.6-8.7)
[2021-02-27] MEDS: lidocaine 1% INJ 20 mL INJECTION (13:41)
[2021-02-27] MEDS: goserelin acetate 10.8 mg Implant SUBCUT (13:52)
--- NOTE | 2021-02-27 14:30 | ONC FU_ITS ---
Dr. Espino follow up note Patient: Yahaira Reyes Unit #: [id number]: 1950 Dicatated By: Ian Espino M.D.Date of Visit:Feb 27, 2021 Onc Med Follow-up/Prog Note History of Present Illness: Mr. Yahaira Reyes, is a 70-year-old gentleman with longstanding history of mildly elevated PSA, first evaluated was in February 2009 for increased PSA at 4.46 and with positive family history of prostate cancer at that time his VARINDER was 3+ and patient underwent TRUS P in February 2009 which showed mild chronic inflammation but no evidence of malignancy since then during follow-up his PSA was ranging from 3.8-7.8 and patient was managed for BPH as well as recurrent urinary tract infection and episode of hematuria for which he underwent cystoscopy showed no abnormality. And recently in October 2020 his follow-up PSA had increased to 10.8 and on VARINDER patient was found to have new development of right-sided firmness for which on October 27, 2020 he underwent TRUSP/biopsy which showed large volume, high-grade prostate cancer pathology confirmed 6 out of 11 biopsies positive for adenocarcinoma all on the right side, all with [place] score 5+5, on November 10, 2020 he underwent bone scan as well as CT scan of abdomen pelvis which showed no evidence of metastatic bone disease but moderate uptake in the right cervical spine C4-5 and x-ray of C-spine done on November 10, 2020 confirmed bilateral facet joint arthritis correspond to abnormality seen on bone scan. And no pelvic lymphadenopathy, infrarenal abdominal aortic aneurysm with a maximum diameter of 3.7 and aneurysm is new since 2014. Enhancing mass in the upper pole of right kidney is new since 2014 size 1.5 cm., Patient denies any bone pain, but use catheter for urination, denies any weight loss denies any fever or chills denies any nausea or vomiting diarrhea constipation. Started on Zoladex 10.8 mg along with Casodex on November 27, 2020 Came for follow-up, denies any specific complaints, no hematuria, no dysuria, no pelvic pain, no nausea or vomiting, no diarrhea constipation, no fever chills, occasionally hot flashes otherwise tolerating Zoladex/Casodex concurrent with radiation therapy well Medications: Albuterol Sulfate HFA 2 Puff(s) (of 108 (90 base) mcg/act) Aerosol, solution Inhalation q 6 hours, Allergy 1 Tablet (of 10 mg) Oral daily, Ascorbic Acid 1 Tablet (of 500 mg) Tablet, chewable Oral b.i.d., Budesonide-Formoterol Fumarate 2 Puff(s) (of 160-4.5 mcg/act) Aerosol Inhalation b.i.d., Finasteride 1 Tablet (of 5 mg) Oral daily, Methenamine Hippurate 1 Tablet (of 1 g) Oral b.i.d., Pravachol 1 Tablet (of 40 mg) Oral daily, Saw [place] 1 Caplet (of 450 mg) Capsule Oral daily, Terazosin HCl 1 Capsule (of 2 mg) Oral daily, Zinc 1 Caplet (of 15 mg) Capsule Oral daily Allergies: No Known Allergies. Review of Systems: Review of Systems is not available for this patient. Vital Signs: Vitals are not available for this patient. Performance Status: 0 - Fully active, able to carry on all predisease activities without restrictions. (ECOG) Physical Examination: ENMT - No mouth sores, no thrush, no jaundice, Respiratory - Lungs are clear to auscultation, Cardiovascular - Regular rate and rhythm of heart, Abdomen - Soft, bowel sounds present, Extremities - No visible edema. Lab/Imaging: Most recent lab results are not available for this patient. Impression: High-grade, large volume adenocarcinoma prostate per TABATHA SP/biopsy of right side prostate gland, done on October 27, 2020 confirmed 6 out of 11 biopsy positive for CARD SCRAPER, with percent of involvement ranging from 50% to 100% with all Segun score 5+5 T2 b, NX Very high risk Started on 3 monthly Zoladex along with Casodex on November 27, 2020 Plan: Discussed with patient regarding his labs white blood count 4.8 hemoglobin 14.5 hematocrit 43.6 platelets 219,000 CMP within normal limits PSA 0.108 compared to 1.70 previously and 14.07 the time of diagnosis, his testosterone is 2.5 compared to 671 at time of diagnosis Clinically, patient is doing well with no new signs symptoms, tolerating combined ADT with Zoladex/Casodex concurrent with radiation therapy well, patient will complete radiation therapy on 03/21/2021, in the meantime he will continue daily Casodex until he concludes radiation therapy and will proceed with his next 3 monthly dose of Zoladex today then continue with 3 monthly Zoladex for 2 to 3 years and then return to clinic in 1 month to discuss role of chemotherapy with Taxotere in very high risk group, Signed By: Ian Espino M.D. <<Signature on File>>
--- NOTE | 2021-03-05 09:40 | ONCRAD TMN_ITS ---
Radiation Oncology Treatment Management Note Patient Name: Yahaira Reyes Date of : 1950 Date of Service: 03/05/2021 Attending Physician: Freddy Petersen M.D. Yahaira Reyes is a 70 year old white male diagnosed with a clinical stage IIIC (T2bN0) very high-risk stratification prostate cancer. A TRUS biopsy performed on October 27, 2020 demonstrated a prostate gland measuring 50 cc with right lobar hypoechoic lesions present diagnosed an adenocarcinoma of the prostate gland with a Segun score of 5+5 = 10 involving the right lateral apex, right lateral mid gland, right lateral base, right apex, right mid gland, and right base, respectively. Perineural and fat/muscle invasion was described. The patient has received ADT (Casodex was prescribed on November 20 and Zoladex was administered on November 27). The patient has received 54 Gy of a prescribed 70 Kohli to the prostate and regional lymph nodes with an intensity modulated radiotherapy plan utilizing a step and shoot treatment technique. He has received neoadjuvant hormonal therapy. Upon review of systems, he denied any gastrointestinal or genitourinary complaints related to radiotherapy. On physical examination, the patient weighed 156 lbs. His temperature was 97.6 ???F with a blood pressure of 117/82 mmHg. The pulse was 61 bpm and his respiratory rate was 18. There was no erythema within the treatment robles. Continue pelvic radiotherapy as planned. I will recommend a trial of NSAIDs to possibly improve his catheterization. Signed by: Dr. Freddy Petersen 03/05/2021 9:38:27 AM
--- NOTE | 2021-03-12 09:37 | ONCRAD TMN_ITS ---
Radiation Oncology Treatment Management Note Patient Name: Yahaira Reyes Date of : 1950 Date of Service: 03/12/2021 Attending Physician: Freddy Petersen M.D. Yahaira Reyes is a 70 year old white male diagnosed with a clinical stage IIIC (T2bN0) very high-risk stratification prostate cancer. A TRUS biopsy performed on October 27, 2020 demonstrated a prostate gland measuring 50 cc with right lobar hypoechoic lesions present diagnosed an adenocarcinoma of the prostate gland with a Segun score of 5+5 = 10 involving the right lateral apex, right lateral mid gland, right lateral base, right apex, right mid gland, and right base, respectively. Perineural and fat/muscle invasion was described. The patient has received ADT (Casodex was prescribed on November 20 and Zoladex was administered on November 27). The patient has received 64 Gy of a prescribed 70 Kohli to the prostate and regional lymph nodes with an intensity modulated radiotherapy plan utilizing a step and shoot treatment technique. He has received neoadjuvant hormonal therapy. Upon review of systems, he denied any gastrointestinal or genitourinary complaints related to radiotherapy. On physical examination, the patient weighed 157 lbs. His temperature was 97.1 ???F with a blood pressure of 112/78 mmHg. The pulse was 62 bpm and his respiratory rate was 18. There was no erythema within the treatment robles. Continue pelvic radiotherapy as prescribed. Signed by: Dr. Freddy Petersen 03/12/2021 9:36:54 AM
--- NOTE | 2021-03-19 09:33 | ONCRAD TMN_ITS ---
Radiation Oncology Treatment Management Note Patient Name: Yahaira Reyes Date of : 1950 Date of Service: 03/19/2021 Attending Physician: Freddy Petersen M.D. Yahaira Reyes is a 70 year old white male diagnosed with a clinical stage IIIC (T2bN0) very high-risk stratification prostate cancer. A TRUS biopsy performed on October 27, 2020 demonstrated a prostate gland measuring 50 cc with right lobar hypoechoic lesions present diagnosed an adenocarcinoma of the prostate gland with a Segun score of 5+5 = 10 involving the right lateral apex, right lateral mid gland, right lateral base, right apex, right mid gland, and right base, respectively. Perineural and fat/muscle invasion was described. The patient has received ADT (Casodex was prescribed on November 20 and Zoladex was administered on November 27). The patient has received 74 Gy of a prescribed 78 Kohli to the prostate and regional lymph nodes with an intensity modulated radiotherapy plan utilizing a step and shoot treatment technique. He has received neoadjuvant hormonal therapy. Upon review of systems, he denied any gastrointestinal or genitourinary complaints related to radiotherapy. On physical examination, the patient weighed 155 lbs. His temperature was 98.5 ???F with a blood pressure of 112/78 mmHg. The pulse was 62 bpm and his respiratory rate was 18. There was no erythema within the treatment robles. Continue pelvic radiotherapy as planned. Signed by: Dr. Freddy Petersen 03/19/2021 9:31:41 AM
== END 2021-03-27 23:59 | disposition home or self-care (01) ==
LOC: ONCMED 05:49
PROVIDERS: Internal Medicine Hematology & Oncology; Absent Provider Radiology Radiation Oncology; PCP Registered Nurse; Visit Provider Radiology Radiation Oncology
DX: Z51.0 Encounter for antineoplastic radiation therapy (principal); Z51.11 Encounter for antineoplastic chemotherapy; C61 Malignant neoplasm of prostate; Z79.818 Long term (current) use of other agents affecting estrogen receptors and estrogen levels; Z79.899 Other long term (current) drug therapy
CPT/HCPCS: 36415; 77300; 77336; 77385; 77387; 77412; 80053; 84153; 84403; 85025; 96372; 96402; 99215; J9202

== ENCOUNTER 2021-04-20 06:37 | Outpatient (RCR) | payer MEDICARE, SELFPAY ==
[2021-03-30 10:39] LABS: Prostate Specific Antigen 0.022 ng/mL (0-4)
[2021-03-30 10:50] LABS: Alanine Aminotransferase 12 U/L (0-41); Alkaline Phosphatase 76 IU/L (40-130); Anion Gap 17.4 (5-19); Aspartate Amino Transferase 15 U/L (0-40); Blood Urea Nitrogen 7 mg/dL (8-23); Calcium 8.8 mg/dL (8.5-10.5); Carbon Dioxide 24 mmol/L (22-29); Chloride 100 mmol/L (98-107); Globulin 2.8 g/dL (1.3-4.6); Glomerular Filtration Rate 83.7 mL/min (90-130); Glucose 82 mg/dL (65-115); Osmolality Calculated 281 mOsm/kg (285-295); Potassium 4.4 mmol/L (3.5-5.1); Sodium 137 mmol/L (136-145); Total Bilirubin 0.5 mg/dL (0.15-1.2); Total Protein 6.8 g/dL (6.6-8.7)
--- NOTE | 2021-03-30 12:04 | ONC FU_ITS ---
Dr. Espino follow up note Patient: Yahaira Reyes Unit #: [id number]: 1950 Dicatated By: Ian Espino M.D.Date of Visit:Mar 30, 2021 Onc Med Follow-up/Prog Note History of Present Illness: Mr. Yahaira Reyes, is a 70-year-old gentleman with longstanding history of mildly elevated PSA, first evaluated was in February 2009 for increased PSA at 4.46 and with positive family history of prostate cancer at that time his VARINDER was 3+ and patient underwent TRUS P in February 2009 which showed mild chronic inflammation but no evidence of malignancy since then during follow-up his PSA was ranging from 3.8-7.8 and patient was managed for BPH as well as recurrent urinary tract infection and episode of hematuria for which he underwent cystoscopy showed no abnormality. And recently in October 2020 his follow-up PSA had increased to 10.8 and on VARINDER patient was found to have new development of right-sided firmness for which on October 27, 2020 he underwent TRUSP/biopsy which showed large volume, high-grade prostate cancer pathology confirmed 6 out of 11 biopsies positive for adenocarcinoma all on the right side, all with [place] score 5+5, on November 10, 2020 he underwent bone scan as well as CT scan of abdomen pelvis which showed no evidence of metastatic bone disease but moderate uptake in the right cervical spine C4-5 and x-ray of C-spine done on November 10, 2020 confirmed bilateral facet joint arthritis correspond to abnormality seen on bone scan. And no pelvic lymphadenopathy, infrarenal abdominal aortic aneurysm with a maximum diameter of 3.7 and aneurysm is new since 2014. Enhancing mass in the upper pole of right kidney is new since 2014 size 1.5 cm., Patient denies any bone pain, but use catheter for urination, denies any weight loss denies any fever or chills denies any nausea or vomiting diarrhea constipation. Started on Zoladex 10.8 mg along with Casodex on November 27, 2020 Completed radiation therapy along with Casodex on March 21, 2021 Came for follow-up, denies any specific complaints, no fever chills, no nausea or vomiting, no diarrhea or constipation, patient has completed his radiation therapy along with daily Casodex on March 21, 2021 but he is on 3 monthly Zoladex, tolerating well, patient is here to discuss role of systemic chemotherapy. Medications: Albuterol Sulfate HFA 2 Puff(s) (of 108 (90 base) mcg/act) Aerosol, solution Inhalation q 6 hours, Allergy 1 Tablet (of 10 mg) Oral daily, Ascorbic Acid 1 Tablet (of 500 mg) Tablet, chewable Oral b.i.d., Budesonide-Formoterol Fumarate 2 Puff(s) (of 160-4.5 mcg/act) Aerosol Inhalation b.i.d., Finasteride 1 Tablet (of 5 mg) Oral daily, Methenamine Hippurate 1 Tablet (of 1 g) Oral b.i.d., Pravachol 1 Tablet (of 40 mg) Oral daily, Saw [place] 1 Caplet (of 450 mg) Capsule Oral daily, Terazosin HCl 1 Capsule (of 2 mg) Oral daily, Zinc 1 Caplet (of 15 mg) Capsule Oral daily Allergies: No Known Allergies. Review of Systems: Review of Systems is not available for this patient. Vital Signs: Performed on Mar 30, 2021 10:59 Height - 67.00 in Weight - 156 lbs (HIGH) BSA - 1.82 sq.m BMI - 24.43 Temperature - 98.2 F (LOW) Pulse - 64 /min Respiration - 18 /min BP - 135/77 mm(hg) O2 Sat - 99 % Pain - 0 Fatigue - 0 Performance Status: 0 - Fully active, able to carry on all predisease activities without restrictions. (ECOG) Physical Examination: ENMT - No mouth sores, no thrush, no jaundice, Respiratory - Lungs are clear to auscultation, Cardiovascular - Regular rate and rhythm of heart, Abdomen - Soft, bowel sounds present, Extremities - No visible edema. Lab/Imaging: Most recent lab results are not available for this patient. Impression: High-grade, large volume adenocarcinoma prostate per TABATHA SP/biopsy of right side prostate gland, done on October 27, 2020 confirmed 6 out of 11 biopsy positive for FLOAT PHLEBOTOMIST, with percent of involvement ranging from 50% to 100% with all Segun score 5+5 T2 a, NX Very high risk Started on 3 monthly Zoladex along with Casodex on November 27, 2020 Completed on March 21, 2021, will continue with Zoladex every 3-month for 2 to 3 years Plan: Discussed with patient regarding his labs CMP within normal limits PSA 0.022 compared to 0.108 on February 27, 2021 Clinically, patient is doing well with no signs symptoms adjusting her recurrence of disease or disease progression, patient has completed radiation therapy to prostate along with daily Casodex on March 21, 2021, patient was advised to discontinue Casodex, will continue Zoladex every 3 months for 2 to 3 years and in the meantime, being high risk, patient was offered Taxotere as discussed earlier, every 3 weeks x4-6 cycle, patient is somewhat reluctant as he has a sick at home and he is looking after her and he is concerned about related toxicity so he will discuss with his and other family member over the weekend and then let us know whether he wants to proceed with chemotherapy or not, patient was advised to come back next week for further discussion, side effect related to chemotherapy with Taxotere were discussed and if patient decided to proceed with chemo then will have further discussion regarding chemotherapy schedule and also about Port-A-Cath placement on the other hand the patient decided not to proceed with chemotherapy AGAINST MEDICAL ADVICE then we will see him back in May for his 3 monthly dose of Zoladex. Signed By: Ian Espino M.D. <<Signature on File>>
--- NOTE | 2021-04-20 09:57 | ONCRAD EPV_ITS ---
Radiation Oncology Follow-Up Note Patient Name: Yahaira Reyes Date of : 1950 Date of Service: 04/20/2021 Attending Physician: Freddy Petersen M.D. Yahaira Reyes returned to my office this morning for a routinely scheduled follow-up appointment. He completed definitive prostate radiotherapy for the management of a clinical stage IIIC (T2bN0) very high-risk stratification prostate cancer. A TRUS biopsy performed on October 27, 2020 demonstrated a prostate gland measuring 50 cc with right lobar hypoechoic lesions present diagnosed an adenocarcinoma of the prostate gland with a Segun score of 5+5 = 10 involving the right lateral apex, right lateral mid gland, right lateral base, right apex, right mid gland, and right base, respectively. Perineural and fat/muscle invasion was described. The patient has received ADT (Casodex was prescribed on November 20 and Zoladex was administered on November 27). Pelvic radiation therapy was delivered between the dates of January 25, 2021 through March 21, 2021. A prescribed dose of 78 Gy was delivered in 39 fractions encompassing 56 elapsed days. On review of systems, he denied lower urinary tract symptoms. On physical examination, the patient weighed 153 pounds. The temperature is 97.6???F. His blood pressure was 109/74 mmHg. The pulse was 62 bpm and his respiratory rate was 20 breaths per minute. Genitourinary exam was deferred. In summary, Mr. Reyes returned for a routine post-radiotherapy follow-up. A recent PSA was 0.022 ng/mL. He is currently receiving adjuvant ADT (Zoladex - he declined adjuvant chemotherapy) and will continue follow-up with his medical oncologist. Signed by: Dr. Freddy Petersen 04/20/2021 9:55:44 AM
== END 2021-04-26 23:59 | disposition home or self-care (01) ==
LOC: ONCMED 06:37
PROVIDERS: Internal Medicine Hematology & Oncology; Absent Provider Radiology Radiation Oncology; PCP Registered Nurse; Visit Provider Radiology Radiation Oncology
DX: C61 Malignant neoplasm of prostate (principal); R97.20 Elevated prostate specific antigen [PSA]; Z79.899 Other long term (current) drug therapy; Z92.21 Personal history of antineoplastic chemotherapy
CPT/HCPCS: 36415; 80053; 84153; 99024; 99214

== ENCOUNTER 2021-07-05 08:21 | Outpatient (CLI) | payer MEDICARE, SELFPAY ==
[2021-07-05 09:06] LABS: Basophils % 0.8 %; Eosinophils # 0.2 10^3/uL (0.0-0.8); Eosinophils % 4.1 %; Hematocrit 43.4 % (42.0-52.0); Hemoglobin 14.5 g/dL (11.7-16.6); Lymphocytes # 1.1 10^3/uL (0.8-4.8); Lymphocytes % 21.7 %; Mean Corpuscular HGB Conc 33.4 g/dL (30.0-36.0); Mean Corpuscular Volume 92.7 fl (80-94); Mean Platelet Volume 9.5 fL (7.4-10.4); Monocytes # 0.5 10^3/uL (0.2-0.9); Monocytes % 9.6 %; Nucleated Red Blood Cells % 0 %; Platelet Count 266 10^3/cmm (130-400); Red Blood Count 4.68 10^6/uL (4.1-5.3); Red Cell Distribution Width 13.1 % (12.1-15.1); White Blood Count 4.9 10^3/uL (4.0-10.0)
[2021-07-05 09:22] LABS: Alanine Aminotransferase 9 U/L (0-41); Albumin Level 3.9 g/dL (3.5-5.2); Alkaline Phosphatase 80 IU/L (40-130); Anion Gap 12.6 (5-19); Aspartate Amino Transferase 13 U/L (0-40); Blood Urea Nitrogen 15 mg/dL (8-23); Calcium 8.5 mg/dL (8.5-10.5); Carbon Dioxide 27 mmol/L (22-29); Chloride 102 mmol/L (98-107); Glomerular Filtration Rate 66.2 mL/min (90-130); Glucose 95 mg/dL (65-115); Osmolality Calculated 285 mOsm/kg (285-295); Potassium 4.6 mmol/L (3.5-5.1); Sodium 137 mmol/L (136-145); Total Bilirubin 0.2 mg/dL (0.15-1.2); Total Protein 6.9 g/dL (6.6-8.7)
[2021-07-05 09:25] LABS: Prostate Specific Antigen < 0.014 ng/mL (0-4)
[2021-07-05] MEDS: lidocaine 1% INJ 20 mL INJECTION (11:22)
--- NOTE | 2021-07-05 11:33 | ONC FU_ITS ---
Dr. Espino follow up note Patient: Yahaira Reyes Unit #: [id number]: 1950 Dicatated By: Ian Espino M.D.Date of Visit:Jul 05, 2021 Onc Med Follow-up/Prog Note History of Present Illness: Mr. Yahaira Reyes, is a 71 -year-old gentleman with longstanding history of mildly elevated PSA, first evaluated was in February 2009 for increased PSA at 4.46 and with positive family history of prostate cancer at that time his VARINDER was 3+ and patient underwent TRUS P in February 2009 which showed mild chronic inflammation but no evidence of malignancy since then during follow-up his PSA was ranging from 3.8-7.8 and patient was managed for BPH as well as recurrent urinary tract infection and episode of hematuria for which he underwent cystoscopy showed no abnormality. And recently in October 2020 his follow-up PSA had increased to 10.8 and on VARINDER patient was found to have new development of right-sided firmness for which on October 27, 2020 he underwent TRUSP/biopsy which showed large volume, high-grade prostate cancer pathology confirmed 6 out of 11 biopsies positive for adenocarcinoma all on the right side, all with Segun score 5+5, on November 10, 2020 he underwent bone scan as well as CT scan of abdomen pelvis which showed no evidence of metastatic bone disease but moderate uptake in the right cervical spine C4-5 and x-ray of C-spine done on November 10, 2020 confirmed bilateral facet joint arthritis correspond to abnormality seen on bone scan. And no pelvic lymphadenopathy, infrarenal abdominal aortic aneurysm with a maximum diameter of 3.7 and aneurysm is new since 2014. Enhancing mass in the upper pole of right kidney is new since 2014 size 1.5 cm., Patient denies any bone pain, but use catheter for urination, denies any weight loss denies any fever or chills denies any nausea or vomiting diarrhea constipation. Started on Zoladex 10.8 mg along with Casodex on November 27, 2020 Completed radiation therapy along with Casodex on March 21, 2021 Came for follow-up, denies any specific complaints, no fever chills, no nausea or vomiting, no diarrhea or constipation, patient has decided not to take recommended docetaxel but continue with 3 monthly Zoladex. And also smoking about 2 packs a day. No new bony pains, no dysuria or hematuria, and appetite is good, occasionally hot flashes otherwise tolerating 3 monthly Zoladex well Medications: Albuterol Sulfate HFA 2 Puff(s) (of 108 (90 base) mcg/act) Aerosol, solution Inhalation q 6 hours, Allergy 1 Tablet (of 10 mg) Oral daily, Ascorbic Acid 1 Tablet (of 500 mg) Tablet, chewable Oral b.i.d., Budesonide-Formoterol Fumarate 2 Puff(s) (of 160-4.5 mcg/act) Aerosol Inhalation b.i.d., Finasteride 1 Tablet (of 5 mg) Oral daily, Methenamine Hippurate 1 Tablet (of 1 g) Oral b.i.d., Pravachol 1 Tablet (of 40 mg) Oral daily, Saw [place] 1 Caplet (of 450 mg) Capsule Oral daily, Terazosin HCl 1 Capsule (of 2 mg) Oral daily, Zinc 1 Caplet (of 15 mg) Capsule Oral daily Allergies: No Known Allergies. Review of Systems: Review of Systems is not available for this patient. Vital Signs: Performed on Jul 05, 2021 10:16 Height - 67.00 in Weight - 156.0 lbs (HIGH) BSA - 1.82 sq.m BMI - 24.43 Temperature - 97.8 F (LOW) Pulse - 82 /min Respiration - 16 /min BP - 101/68 mm(hg) O2 Sat - 97 % Pain - 0 Fatigue - 2 Performance Status: 0 - Fully active, able to carry on all predisease activities without restrictions. (ECOG) Physical Examination: ENMT - No mouth sores, no thrush, no jaundice, Respiratory - Lungs are clear to auscultation, Cardiovascular - Regular rate and rhythm of heart, Abdomen - Soft, bowel sounds present, Extremities - No visible edema. Lab/Imaging: Most recent lab results are not available for this patient. Impression: High-grade, large volume adenocarcinoma prostate per TABATHA SP/biopsy of right side prostate gland, done on October 27, 2020 confirmed 6 out of 11 biopsy positive for DIRECTOR OF MEDICAL EDUCATION, with percent of involvement ranging from 50% to 100% with all Segun score 5+5 T2 a, NX Very high risk Started on 3 monthly Zoladex along with Casodex on November 27, 2020 Completed on March 21, 2021, will continue with Zoladex every 3-month for 2 to 3 years, Being high risk, he was offered docetaxel but patient declined, knowing the risk versus benefits but agreed to continue with 3 monthly Zoladex Plan: Discussed with patient regarding his labs white blood count 4.9 hemoglobin 14.5 hematocrit 43.4 platelets 266,000 CMP within normal limits PSA less than 0.014 Clinically, patient doing well with no new signs symptom suggestive of recurrence of disease, his follow-up PSA shows further improvement and remaining labs CBC CMP within normal range, will proceed with the next 3 monthly dose of Zoladex today then he will return to clinic in 3 months with PSA, As mentioned earlier, patient had decided against adjuvant docetaxel, knowing the risk versus benefits As far as chronic/heavy smoking is concerned, patient was advised to quit smoking and was offered any assistance he may need Signed By: Ian Espino M.D. <<Signature on File>>
[2021-07-05] MEDS: goserelin acetate 10.8 mg Implant SUBCUT (11:36)
== END 2021-07-05 08:22 | disposition home or self-care (01) ==
PROVIDERS: PCP Family Medicine; Visit Provider Internal Medicine Hematology & Oncology
DX: C61 Malignant neoplasm of prostate (principal); F17.210 Nicotine dependence, cigarettes, uncomplicated; Z79.818 Long term (current) use of other agents affecting estrogen receptors and estrogen levels
CPT/HCPCS: 36415; 80053; 84153; 85025; 96372; 96402; 99215; J9202

== ENCOUNTER → 2021-09-10 13:47 | Outpatient (BNVA) | payer MEDICARE, SELFPAY | PROVIDERS: PCP Family Medicine; Visit Provider Urology | DX: A49.9 Bacterial infection, unspecified (principal); N39.0 Urinary tract infection, site not specified; N31.8 Other neuromuscular dysfunction of bladder; C61 Malignant neoplasm of prostate; R82.71 Bacteriuria; Z78.9 Other specified health status | CPT/HCPCS: 81003 ==

== ENCOUNTER 2021-10-08 13:10 | Outpatient (CLI) | payer MEDICARE, SELFPAY ==
[2021-10-08 14:26] LABS: Prostate Specific Antigen < 0.014 ng/mL (0-4)
--- NOTE | 2021-10-08 15:47 | ONC FU_ITS ---
Dr. Espino follow up note Patient: Yahaira Reyes Unit #: [id number]: 1950 Dicatated By: Ian Espino M.D.Date of Visit:Oct 08, 2021 Onc Med Follow-up/Prog Note History of Present Illness: Mr. Yahaira Reyes, is a 71 -year-old gentleman with longstanding history of mildly elevated PSA, first evaluated was in February 2009 for increased PSA at 4.46 and with positive family history of prostate cancer at that time his VARINDER was 3+ and patient underwent TRUS P in February 2009 which showed mild chronic inflammation but no evidence of malignancy since then during follow-up his PSA was ranging from 3.8-7.8 and patient was managed for BPH as well as recurrent urinary tract infection and episode of hematuria for which he underwent cystoscopy showed no abnormality. And recently in October 2020 his follow-up PSA had increased to 10.8 and on VARINDER patient was found to have new development of right-sided firmness for which on October 27, 2020 he underwent TRUSP/biopsy which showed large volume, high-grade prostate cancer pathology confirmed 6 out of 11 biopsies positive for adenocarcinoma all on the right side, all with Segun score 5+5, on November 10, 2020 he underwent bone scan as well as CT scan of abdomen pelvis which showed no evidence of metastatic bone disease but moderate uptake in the right cervical spine C4-5 and x-ray of C-spine done on November 10, 2020 confirmed bilateral facet joint arthritis correspond to abnormality seen on bone scan. And no pelvic lymphadenopathy, infrarenal abdominal aortic aneurysm with a maximum diameter of 3.7 and aneurysm is new since 2014. Enhancing mass in the upper pole of right kidney is new since 2014 size 1.5 cm., Patient denies any bone pain, but use catheter for urination, denies any weight loss denies any fever or chills denies any nausea or vomiting diarrhea constipation. Started on Zoladex 10.8 mg along with Casodex on November 27, 2020 Completed radiation therapy along with Casodex on March 21, 2021 Came for follow-up, denies any specific complaints, no fever chills, no nausea or vomiting, no diarrhea or constipation, still smoke about 2 packs a day. Denies any new bony pains denies any dysuria or hematuria occasionally hot flashes but tolerating 3 monthly Zoladex well otherwise Medications: Albuterol Sulfate HFA 2 Puff(s) (of 108 (90 base) mcg/act) Aerosol, solution Inhalation q 6 hours, Allergy 1 Tablet (of 10 mg) Oral daily, Ascorbic Acid 1 Tablet (of 500 mg) Tablet, chewable Oral b.i.d., Budesonide-Formoterol Fumarate 2 Puff(s) (of 160-4.5 mcg/act) Aerosol Inhalation b.i.d., Finasteride 1 Tablet (of 5 mg) Oral daily, Methenamine Hippurate 1 Tablet (of 1 g) Oral b.i.d., Pravachol 1 Tablet (of 40 mg) Oral daily, Saw [place] 1 Caplet (of 450 mg) Capsule Oral daily, Terazosin HCl 1 Capsule (of 2 mg) Oral daily, Zinc 1 Caplet (of 15 mg) Capsule Oral daily Allergies: No Known Allergies. Review of Systems: Review of Systems is not available for this patient. Vital Signs: Performed on Oct 08, 2021 15:12 Height - 67.00 in Weight - 161.8 lbs (HIGH) BSA - 1.85 sq.m BMI - 25.34 Temperature - 97.6 F (LOW) Pulse - 77 /min Respiration - 16 /min BP - 140/75 mm(hg) O2 Sat - 98 % Pain - 0 Fatigue - 2 Performance Status: 0 - Fully active, able to carry on all predisease activities without restrictions. (ECOG) Physical Examination: ENMT - No mouth sores, no thrush, no jaundice, Respiratory - Lungs are clear to auscultation, Cardiovascular - Regular rate and rhythm of heart, Abdomen - Soft, bowel sounds present, Extremities - No visible edema. Lab/Imaging: Most recent lab results are not available for this patient. Impression: High-grade, large volume adenocarcinoma prostate per TABATHA SP/biopsy of right side prostate gland, done on October 27, 2020 confirmed 6 out of 11 biopsy positive for CLAIMS DIRECTOR, with percent of involvement ranging from 50% to 100% with all [place] score 5+5 T2 a, NX Very high risk Started on 3 monthly Zoladex along with Casodex on November 27, 2020 Completed on March 21, 2021, will continue with Zoladex every 3-month for 2 to 3 years, Being high risk, he was offered docetaxel but patient declined, knowing the risk versus benefits but agreed to continue with 3 monthly Zoladex Plan: Discussed with patient regarding his labs PSA is less than 0.014 Clinically, patient doing well with no signs symptoms history of recurrence of disease, tolerating 3 monthly Zoladex well, will proceed with next dose today then return to clinic in 3 months with PSA and for next dose of Zoladex. Patient was advised to quit smoking and was offered any assistance he may need Signed By: Ian Espino M.D. <<Signature on File>>
[2021-10-08] MEDS: lidocaine 1% INJ 20 mL INJECTION (16:00)
[2021-10-08] MEDS: goserelin acetate 10.8 mg Implant SUBCUT (16:00)
== END 2021-10-08 13:11 | disposition home or self-care (01) ==
LOC: ONCMED 13:15
PROVIDERS: PCP Family Medicine; Visit Provider Internal Medicine Hematology & Oncology
DX: C61 Malignant neoplasm of prostate (principal); Z79.818 Long term (current) use of other agents affecting estrogen receptors and estrogen levels; F17.210 Nicotine dependence, cigarettes, uncomplicated; Z79.899 Other long term (current) drug therapy
CPT/HCPCS: 36415; 84153; 96402; 99215; J9202

== ENCOUNTER 2022-01-21 11:16 | Oncology outpatient (recurring) (ONCR) | payer MEDICARE, SELFPAY ==
[2022-01-21 13:03] LABS: Prostate Specific Antigen < 0.014 ng/mL (0-4)
[2022-01-21] MEDS: lidocaine 1% INJ 20 mL SUBCUT (13:41)
[2022-01-21] MEDS: goserelin acetate 10.8 mg Implant SUBCUT (13:53)
== END 2022-01-24 23:59 | disposition home or self-care (01) ==
PROVIDERS: PCP Family Medicine; Visit Provider Internal Medicine Hematology & Oncology
DX: Z51.11 Encounter for antineoplastic chemotherapy (principal); C61 Malignant neoplasm of prostate
CPT/HCPCS: 84153; 96372; 96402; 99214; J9202

== ENCOUNTER → 2022-03-05 09:06 | Outpatient (BNVA) | payer MEDICARE, SELFPAY | PROVIDERS: PCP Family Medicine; Visit Provider Urology | DX: N31.8 Other neuromuscular dysfunction of bladder (principal); C61 Malignant neoplasm of prostate | CPT/HCPCS: 51798; 99213 ==

== ENCOUNTER 2022-04-23 12:41 | Oncology outpatient (recurring) (ONCR) | payer MEDICARE, SELFPAY ==
[2022-04-23 13:16] LABS: Basophils % 0.5 %; Eosinophils # 0.1 10^3/uL (0.0-0.8); Eosinophils % 1.8 %; Hemoglobin 12.7 g/dL (11.7-16.6); Lymphocytes # 1.7 10^3/uL (0.8-4.8); Lymphocytes % 20.9 %; Mean Corpuscular HGB Conc 32.6 g/dL (30.0-36.0); Mean Corpuscular Volume 92.2 fl (80-94); Mean Platelet Volume 9.6 fL (7.4-10.4); Monocytes # 0.4 10^3/uL (0.2-0.9); Monocytes % 5.3 %; Neutrophils # 5.63 10^3/uL (1.8-7.7); Neutrophils % 70.9 %; Nucleated Red Blood Cells % 0 %; Platelet Count 248 10^3/cmm (130-400); Red Blood Count 4.23 10^6/uL (4.1-5.3); Red Cell Distribution Width 14.5 % (12.1-15.1); White Blood Count 7.9 10^3/uL (4.0-10.0)
[2022-04-23 13:53] LABS: Alanine Aminotransferase 12 U/L (0-41); Albumin Level 3.7 g/dL (3.5-5.2); Alkaline Phosphatase 77 U/L (40-130); Aspartate Amino Transferase 13 U/L (0-40); Blood Urea Nitrogen 11 mg/dL (8-23); Calcium 8.8 mg/dL (8.5-10.5); Carbon Dioxide 27 mmol/L (22-29); Chloride 100 mmol/L (98-107); Globulin 3.1 g/dL (1.3-4.6); Glomerular Filtration Rate 66.2 mL/min (90-130); Glucose 142 mg/dL (65-115); Osmolality Calculated 286 mOsm/kg (285-295); Sodium 137 mmol/L (136-145); Total Bilirubin 0.3 mg/dL (0.15-1.2); Total Protein 6.8 g/dL (6.6-8.7)
[2022-04-23 13:54] LABS: Prostate Specific Antigen < 0.014 ng/mL (0-4)
[2022-04-23] MEDS: leuprolide 22.5 mg Kit IM (15:32)
== END 2022-04-26 23:59 | disposition home or self-care (01) ==
PROVIDERS: Nurse Practitioner Family; PCP Family Medicine; Visit Provider Internal Medicine Hematology & Oncology
DX: C61 Malignant neoplasm of prostate (principal); F17.210 Nicotine dependence, cigarettes, uncomplicated; Z79.818 Long term (current) use of other agents affecting estrogen receptors and estrogen levels; Z79.899 Other long term (current) drug therapy
CPT/HCPCS: 36415; 80053; 84153; 85025; 96402; 99214; J9217

== ENCOUNTER 2022-07-25 12:49 | Oncology outpatient (recurring) (ONCR) | payer MEDICARE, SELFPAY ==
[2022-07-25 13:23] LABS: Basophils % 0.6 %; Eosinophils # 0.2 10^3/uL (0.0-0.8); Eosinophils % 3.4 %; Hematocrit 42.5 % (42.0-52.0); Hemoglobin 14.2 g/dL (11.7-16.6); Lymphocytes # 1.9 10^3/uL (0.8-4.8); Lymphocytes % 29.6 %; Mean Corpuscular HGB Conc 33.4 g/dL (30.0-36.0); Mean Corpuscular Hemoglobin 30.2 pg (28.0-34.0); Mean Corpuscular Volume 90.4 fl (80-94); Mean Platelet Volume 9.4 fL (7.4-10.4); Monocytes # 0.6 10^3/uL (0.2-0.9); Monocytes % 8.8 %; Neutrophils # 3.54 10^3/uL (1.8-7.7); Neutrophils % 56.6 %; Nucleated Red Blood Cells % 0 %; Platelet Count 262 10^3/cmm (130-400); Red Cell Distribution Width 14.2 % (12.1-15.1); White Blood Count 6.3 10^3/uL (4.0-10.0)
[2022-07-25 14:32] LABS: Alanine Aminotransferase 11 U/L (0-41); Albumin Level 3.9 g/dL (3.5-5.2); Alkaline Phosphatase 83 U/L (40-130); Anion Gap 11.4 (5-19); Aspartate Amino Transferase 16 U/L (0-40); Blood Urea Nitrogen 16 mg/dL (8-23); Calcium 9.5 mg/dL (8.5-10.5); Carbon Dioxide 28 mmol/L (22-29); Chloride 100 mmol/L (98-107); Globulin 3.4 g/dL (1.3-4.6); Glucose 83 mg/dL (65-115); Osmolality Calculated 280 mOsm/kg (285-295); Potassium 4.4 mmol/L (3.5-5.1); Sodium 135 mmol/L (136-145); Total Bilirubin 0.4 mg/dL (0.15-1.2); Total Protein 7.3 g/dL (6.6-8.7)
[2022-07-25 14:35] LABS: Prostate Specific Antigen < 0.014 ng/mL (0-4)
[2022-07-25] MEDS: leuprolide 22.5 mg Kit IM (15:27)
== END 2022-07-27 23:59 | disposition home or self-care (01) ==
PROVIDERS: PCP Family Medicine; Visit Provider Internal Medicine Hematology & Oncology
DX: C61 Malignant neoplasm of prostate (principal); Z79.818 Long term (current) use of other agents affecting estrogen receptors and estrogen levels; Z79.899 Other long term (current) drug therapy
CPT/HCPCS: 80053; 84153; 85025; 96402; 99214; J9217

== ENCOUNTER 2022-10-24 12:37 | Oncology outpatient (recurring) (ONCR) | payer MEDICARE, SELFPAY ==
[2022-10-24 13:03] LABS: Basophils % 0.7 %; Eosinophils # 0.2 10^3/uL (0.0-0.8); Eosinophils % 3.6 %; Hematocrit 41.5 % (42.0-52.0); Hemoglobin 13.5 g/dL (11.7-16.6); Lymphocytes # 1.8 10^3/uL (0.8-4.8); Lymphocytes % 30.2 %; Mean Corpuscular HGB Conc 32.5 g/dL (30.0-36.0); Mean Corpuscular Hemoglobin 29.9 pg (28.0-34.0); Mean Corpuscular Volume 91.8 fl (80-94); Mean Platelet Volume 9.8 fL (7.4-10.4); Monocytes # 0.4 10^3/uL (0.2-0.9); Monocytes % 7.1 %; Neutrophils # 3.54 10^3/uL (1.8-7.7); Neutrophils % 58.1 %; Nucleated Red Blood Cells % 0 %; Platelet Count 241 10^3/cmm (130-400); Red Blood Count 4.52 10^6/uL (4.1-5.3); Red Cell Distribution Width 14.4 % (12.1-15.1); White Blood Count 6.1 10^3/uL (4.0-10.0)
[2022-10-24 13:30] LABS: Alanine Aminotransferase 10 U/L (0-41); Albumin Level 3.9 g/dL (3.5-5.2); Alkaline Phosphatase 71 U/L (40-130); Anion Gap 13.2 (5-19); Aspartate Amino Transferase 14 U/L (0-40); Blood Urea Nitrogen 11 mg/dL (8-23); Carbon Dioxide 27 mmol/L (22-29); Chloride 98 mmol/L (98-107); Glucose 110 mg/dL (65-115); Osmolality Calculated 278 mOsm/kg (285-295); Potassium 4.2 mmol/L (3.5-5.1); Sodium 134 mmol/L (136-145); Testosterone Total 16.1 ng/dL (193-740); Total Bilirubin 0.3 mg/dL (0.15-1.2); Total Protein 6.9 g/dL (6.6-8.7)
[2022-10-24 13:32] LABS: Prostate Specific Antigen < 0.014 ng/mL (0-4)
[2022-10-24] MEDS: leuprolide 22.5 mg Kit IM (15:27)
[2022-10-24 15:44] VITALS: BP 126/80; PULSE 112; TEMP 36.9
== END 2022-10-25 23:59 | disposition home or self-care (01) ==
PROVIDERS: PCP Family Medicine; Visit Provider Internal Medicine Hematology & Oncology
DX: C61 Malignant neoplasm of prostate (principal); Z79.52 Long term (current) use of systemic steroids; Z79.818 Long term (current) use of other agents affecting estrogen receptors and estrogen levels; Z79.899 Other long term (current) drug therapy; F17.210 Nicotine dependence, cigarettes, uncomplicated
CPT/HCPCS: 36415; 80053; 84153; 84403; 85025; 96402; 99214; J9217

== ENCOUNTER → 2022-12-31 14:00 | Outpatient (BNVA) | payer OTHER, SELFPAY | PROVIDERS: PCP Family Medicine; Visit Provider Otolaryngology | DX: R49.0 Dysphonia (principal); H61.22 Impacted cerumen, left ear; M95.0 Acquired deformity of nose; J34.2 Deviated nasal septum; M26.623 Arthralgia of bilateral temporomandibular joint; F17.210 Nicotine dependence, cigarettes, uncomplicated | CPT/HCPCS: 31575; 69210; 99205 ==

== ENCOUNTER 2023-01-07 11:19 | Day surgery (SDC) | payer OTHER, SELFPAY ==
[2023-01-06 14:29] VITALS: BMI 25.3
[2023-01-07] VITALS (10 sets, daily range): BP systolic 115–130; BP diastolic 77–98; PULSE 47–74; RESP 16–25; TEMP 36.3–36.8; O2SAT 93–99
[2023-01-07] MEDS: sodium chloride 0.9% 1,000 ML 30 ML IV (12:03)
--- NOTE | 2023-01-07 12:45 | W.PM.OPSUD ---
Surgery/Procedure H&P Update DATE OF PROCEDURE: January 07, 2023 DATE H&P PERFORMED: 12/31/22 H&P UPDATE INFORMATION: I have reviewed H&P completed within last 30 days, I have examined patient prior to procedure and No changes to prior documentation CHANGES TO PREVIOUS DOCUMENTATION: No changes PREOP DIAGNOSIS: Laryngeal lesions PRIMARY INDICATION FOR PROCEDURE: Patient has a laryngeal lesion on his right anterior vocal cord region and the laryngeal surface of the epiglottis. PLANNED PROCEDURE: Operation Date: 01/07/23 13:05 Proposed Procedures p 14794 - laryngoscopy with direct bx , R49.0, J38.3(Not Applicable) - Gorge Roberson MD
--- NOTE | 2023-01-07 12:59 | P.ANESASSM_ITS ---
Pre-Anesthetic Assessment Height/Weight: Height 1.68 m Weight 71.214 kg Temp Pulse Resp BP Pulse Ox O2 Del Method 97.6 F 74 18 125/98 93 Room Air 01/07/23 11:59 01/07/23 11:59 01/07/23 11:59 01/07/23 11:59 01/07/23 11:59 01/07/23 11:59 Preop Diagnosis: Laryngeal lesions Operation Date: 01/07/23 13:05 Proposed Procedures p 71197 - laryngoscopy with direct bx , R49.0, J38.3(Not Applicable) - Gorge Roberson MD Familial anesthetic complications: none Was Beta Elaine taken within 24 hours: N/A Was Clonidine taken within 24 hours: N/A Last intake: Intake Last Liquid Date 01/07/23 Last Liquid Time 07:30 Last Solid Date 01/06/23 Last Solid Time 21:15 Social Tobacco and No alcohol Exam alert, oriented x 3 and regular rate & rhythm Airway Submandibular: within normal limits Cervical ROM: within normal limits Mallampati: Class II Dentition: false Comments: Comments: Hoarseness Pulmonary Chronic Obstructive Pulmonary Disease Self cath Metabolic Hyperlipidemia [facility] [place] Lower Back Pain and Osteoarthritis/DJD Anesthetic Plan ASA status: 3 Anesthesia: General Medications/Allergies Home Medications Medication Instructions Recorded Confirmed Last Taken Type acetaminophen 500 mg capsule 500 mg PO Q6H PRN Pain 08/31/19 01/07/23 01/07/23 01:30 History saw palmetto 450 mg-zinc 450 cap PO .every day 08/31/19 01/06/23 01/06/23 History picolinate 15 mg capsule pravastatin 40 mg tablet 40 mg PO DAILY #90 tabs 08/21/20 01/06/23 01/06/23 Rx ascorbate calcium (vitamin C) 500 500 mg PO BID 11/14/20 01/06/23 01/06/23 History mg tablet lorazepam 1 mg tablet 0.5 - 1 mg PO Q6H PRN Severe 04/23/22 01/06/23 Unknown Rx Nausea #30 tabs prochlorperazine maleate 10 mg 10 mg PO Q4H PRN Mild Nausea #30 04/23/22 01/06/23 Unknown Rx tablet (Compazine) tabs cholecalciferol (vitamin D3) 10 10 mcg PO DAILY 10/24/22 01/06/23 01/06/23 History mcg (400 unit) capsule guaifenesin 1,200 mg 1,200 mg PO Q12H PRN Congestion 10/24/22 01/06/23 Unknown History tablet,extended release,12 hr albuterol sulfate 90 mcg/actuation 90 mcg inhalation DAILY 01/06/23 01/06/23 01/06/23 History aerosol inhaler finasteride 5 mg tablet 5 mg PO DAILY 01/06/23 01/06/23 01/06/23 History methenamine hippurate 1 gram tablet 1 g PO DAILY 01/06/23 01/06/23 01/06/23 History terazosin 2 mg capsule 2 mg PO DAILY 01/06/23 01/07/23 01/06/23 History Allergies Allergy/AdvReac Type Severity Reaction Status Date / Time No Known Allergies Allergy Verified 01/06/23 14:25 Current Medications Generic Name Dose Route Start Last Admin Trade Name Freq PRN Reason Stop Dose Admin Sodium Chloride 1,000 mls @ 30 mls/hr 01/07/23 11:45 01/07/23 12:03 Sodium Chloride 0.9% IV 01/08/23 11:44 30 mls/hr .Q24H WILL Administration PFSH Anesthesia Medical History Cigarette smoker two packs a day or less Detrusor dysfunction Elevated PSA History of cataract Left eye Hyperlipidemia Inguinal hernia Intermittent self-catheterization of bladder Squamous cell carcinoma Urinary retention Surgical History H/O knee surgery History of back surgery Left L3-L4 laminotomy/foraminotomy/limited facetectomy; [place]28/[place] [facility] [place] of prostate biopsy Family History Father , 70 Cancer Mother , 60 CAD (coronary artery disease) Lung disease Other Hyperlipidemia Denies family history of Diabetes Clotting disorder Dementia Psychiatric illness Chronic kidney disease (CKD) Suicide Anesthesia complication Bleeding disorder Hypertension Stroke Social History Smoking and tobacco status: current every day smoker (2 ppd, smoked x 50+ years) cigarettes Alcohol intake: never Substance/Drug Use: never Marital status: Current occupational status: retired Data Anesthesia Cardiac Studies: No Data to Display
[2023-01-07] MEDS: ceFAZolin 2,000 MG in sodium chloride 0.9% (plus) 50 ML 100 MG IV (13:59)
[2023-01-07] MEDS: EPINEPHrine 1 mg/mL INJ XX (14:27)
--- NOTE | 2023-01-07 14:36 | PM.OP ---
Operative Report Date of procedure: January 07, 2023 Pre-op diagnosis: Preop Diagnosis Laryngeal lesions Post-op diagnosis: Lesion of right true vocal cord and lesion of the left inner aryepiglottic fold Post-op findings: White exophytic papillomatoid appearing lesion of right anterior half of the right true vocal cord and a 3 mm x 3 mm similar-appearing lesion on left inner aryepiglottic fold. Nodular appearing left mid true vocal cord lesion. Procedure done: Direct suspension microscopic laryngoscopy with multiple laryngeal biopsies including right true vocal cord and left true vocal cord and left inner aspect of the aryepiglottic fold. Implants: No implants Specimens removed/disposition: Right true vocal cord specimen multiple pieces plus left true vocal cord multiple pieces and left inner aryepiglottic fold multiple pieces. Pathology: Same Surgeon: Gorge Roberson MD Anesthesia: General Estimated blood loss: 10 mL Complications: No complications encountered Findings: White exophytic growths on right anterior vocal cord and left inner aspect of aryepiglottic fold and nodular appearing lesion on left true vocal cord. Brief History: 72-year-old male patient with hoarseness noted to have lesions on his right true vocal cord and left inner aspect of aryepiglottic fold on flexible laryngoscopy in the office. As a result the patient is being brought to the operating room to undergo direct suspension microscopic laryngoscopy with biopsy of these lesions and anything else that looks abnormal at the time. The procedures risks and complications were explained including bleeding infection numbness scarring swelling bruising voice change need for additional treatment and anesthetic risks. With all understood informed consent was granted and witnessed. Procedure: Description of procedure: The patient was placed on the operating table in the supine position. Adequate general endotracheal tube anesthesia was obtained. A timeout was accomplished identifying the patient date of plan procedure allergies fire risk and medications given. With all in agreement the procedure continued. The patient did receive Ancef IV for prophylaxis and also Decadron to help with postoperative edema. The table was rotated 90 degrees. His head was dropped 15 degrees to the horizontal. His eyes were taped shut and a head drape was applied in usual fashion. A gum guard was placed over his upper gingiva. Then a an anterior commissure laryngoscope was used to visualize his larynx. All was visualized and all was normal with the exception of the right true vocal cord white exophytic papilliform type lesion and a left vocal cord nodule adjacent to the white vocal cord lesion on the right side. There was also a similar white appearing lesion on the inner aspect of the left aryepiglottic fold. The laryngoscope was suspended from the [employer] stand. The microscope with the 400 lens was brought in for visualization. The right vocal cord lesion was excised using scissors and cup forceps microscopic size. The majority of the white lesion was taken in 1 biopsy. Surrounding areas were taken in smaller bites from approximately one third back to the arytenoid area. The immediate area below the superior surface of the vocal cord was also biopsied as it was irregular and seemed to be more invasive into the musculature. This seemed to extend approximately 3 mm below the superior surface of the cord. After multiple biopsies of the right cord biopsies of the left nodular lesion were accomplished with cup forceps and scissors as well. Then cottonoids with 1-1000 epinephrine were applied to maintain hemostasis. Then an LTA was dispensed with 2% Xylocaine to the larynx. The scope was moved to the left AE fold inner aspect and cup forceps were used to biopsy that as well. Then epinephrine was applied to that biopsy site as well to attain hemostasis. Then the scope was removed. The gum guard was removed. The area was suctioned clean. Patient was then returned to anesthesia for wake-up and extubation. He tolerated the procedure well had an estimated blood loss of 10 mL and arrived in recovery in stable condition. He will be on strict voice rest.
[2023-01-07] MEDS: acetaminophen-codeine 300-30mg Tablet 1 TAB (15:33)
--- NOTE | 2023-01-07 17:41 | ANE.PACU2 ---
Inpatient post-anesthesia follow up: Airway intact: Yes Vital signs: Temperature 97.8 F Pulse Rate 55 Respiratory Rate 16 Blood Pressure 130/77 Pulse Oximetry 95 Oxygen Delivery Me thod Room Air Oxygen Flow Rate 6 Fraction of Inspir ed Oxygen Hydration adequate: Yes Nausea and vomiting: No Pain level: 2 Mental status: Baseline
[2023-01-13 10:12] LABS: PD-L1 (Clone 22C3) by IHC BBPL See Report
== END 2023-01-07 16:05 | disposition home or self-care (01) ==
PROVIDERS: PCP Family Medicine; Visit Provider Otolaryngology
PROC: 0CJS8ZZ Inspection of Larynx, Via Natural or Artificial Opening Endoscopic (ICD-10-PCS; CPT 31535; principal; 2023-01-07 12:55)
DX: C32.9 Malignant neoplasm of larynx, unspecified (principal); D14.1 Benign neoplasm of larynx; J44.9 Chronic obstructive pulmonary disease, unspecified; E78.5 Hyperlipidemia, unspecified; F17.210 Nicotine dependence, cigarettes, uncomplicated
CPT/HCPCS: 31535; 88305; 88341; 88342; J0171; J0690; J1100; J2405; J2704; J2710; J3010; J3490; J7030

== ENCOUNTER → 2023-01-15 09:48 | Outpatient (BNVA) | payer OTHER, SELFPAY | PROVIDERS: PCP Family Medicine; Visit Provider Otolaryngology | DX: C32.0 Malignant neoplasm of glottis (principal) | CPT/HCPCS: 99213 ==

== ENCOUNTER 2023-01-23 10:33 | Oncology outpatient (recurring) (ONCR) | payer OTHER, SELFPAY ==
[2023-01-23 10:46] VITALS: BP 111/73; PULSE 64; RESP 18; TEMP 36.4; O2SAT 94
[2023-01-23 11:07] LABS: Basophils # 0.1 10^3/uL (0.0-0.1); Basophils % 0.7 %; Eosinophils # 0.3 10^3/uL (0.0-0.8); Eosinophils % 3.6 %; Hematocrit 40.3 % (42.0-52.0); Hemoglobin 13.4 g/dL (11.7-16.6); Lymphocytes # 1.8 10^3/uL (0.8-4.8); Lymphocytes % 25.1 %; Mean Corpuscular HGB Conc 33.3 g/dL (30.0-36.0); Mean Corpuscular Volume 90.4 fl (80-94); Mean Platelet Volume 9.5 fL (7.4-10.4); Monocytes # 0.7 10^3/uL (0.2-0.9); Monocytes % 9.4 %; Neutrophils # 4.32 10^3/uL (1.8-7.7); Neutrophils % 60.4 %; Nucleated Red Blood Cells % 0 %; Platelet Count 252 10^3/cmm (130-400); Red Blood Count 4.46 10^6/uL (4.1-5.3); Red Cell Distribution Width 14.2 % (12.1-15.1); White Blood Count 7.2 10^3/uL (4.0-10.0)
[2023-01-23 11:25] LABS: Alanine Aminotransferase 20 U/L (0-41); Alkaline Phosphatase 79 U/L (40-130); Anion Gap 15.8 (5-19); Aspartate Amino Transferase 18 U/L (0-40); Blood Urea Nitrogen 20 mg/dL (8-23); Calcium 9.2 mg/dL (8.5-10.5); Carbon Dioxide 24 mmol/L (22-29); Chloride 101 mmol/L (98-107); Globulin 3.2 g/dL (1.3-4.6); Glucose 99 mg/dL (65-115); Osmolality Calculated 285 mOsm/kg (285-295); Potassium 4.8 mmol/L (3.5-5.1); Sodium 136 mmol/L (136-145); Testosterone Total 2.5 ng/dL (193-740); Total Bilirubin 0.3 mg/dL (0.15-1.2); Total Protein 7.2 g/dL (6.6-8.7)
[2023-01-23 11:32] LABS: Prostate Specific Antigen < 0.014 ng/mL (0-4)
[2023-01-23] MEDS: leuprolide 22.5 mg Kit IM (13:29)
[2023-01-23 13:36] VITALS: BP 115/81; PULSE 68; RESP 18; TEMP 35.9; O2SAT 96
== END 2023-01-24 23:59 | disposition home or self-care (01) ==
PROVIDERS: PCP Family Medicine; Visit Provider Internal Medicine Hematology & Oncology
DX: C61 Malignant neoplasm of prostate (principal); R20.0 Anesthesia of skin; Z79.818 Long term (current) use of other agents affecting estrogen receptors and estrogen levels; Z79.899 Other long term (current) drug therapy
CPT/HCPCS: 36415; 80053; 84153; 84403; 85025; 96372; 99214; J9217

== ENCOUNTER 2023-02-08 06:04 | Outpatient (CLI) | payer OTHER, SELFPAY ==
--- NOTE | 2023-02-08 08:30 | PETR_ITS ---
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 Then, PET images were obtained. Attenuation corrected images were constructed using the CT scan. Fused images of PET and CT were reviewed. The standardized uptake values (SUV) reported below are maximum values within a region of interest, expressed in gm/ml. Exam includes orbital meatal line to mid-thigh. Radiopharmaceutical: 12.21 mCi F-18 FDG (Fluorodeoxyglucose), IV. Time of imaging post radiopharmaceutical administration: 1 hour Injection site: Left antecubital COMPARISON: NM bone scan whole body* [id number] 11/10/2020 7:36 AM, CT for radiation therapy planning 02/04/2023, CT for radiotherapy planning 01/09/2021, CT abdomen and pelvis 11/10/2020 FINDINGS: Brain: Visualized brain has normal physiologic uptake. Paranasal sinuses: There is mild non radiotracer avid mucosal thickening in the left maxillary sinus. Pharynx: Mild uptake in the palatine tonsils is noted, SUV max 8.5 on the left and 7.4 on the right. Larynx: There is physiologic appearing uptake in the region of the vocal cords. Thyroid: Elevated uptake is noted in the thyroid gland, SUV max 7.8 on the right and 7.2 on the left. Lungs, pleura and trachea: No abnormal uptake. An anterior right upper lobe calcified granuloma is noted. Mild to moderate bilateral centrilobular emphysematous changes are present. Mild dependent streaky density in the lungs is consistent with atelectasis. Heart: Normal physiologic uptake. Mediastinal space: No abnormal uptake. Liver: No abnormal uptake. Gallbladder and bile ducts: No abnormal uptake. Pancreas: No abnormal uptake. Spleen: No abnormal uptake. Calcified granulomas in the spleen are present. Adrenal glands: No abnormal uptake. Kidneys and ureters: An exophytic simple appearing cyst arising from the right kidney is noted demonstrating simple fluid density measuring 3.5 x 2.5 cm on series 3, image 99 within its mid aspect. In the medial superior pole of the right kidney an additional non radiotracer avid low-density lesion measuring 1.8 cm in diameter is noted demonstrating fluid density. A previously noted slightly complex appearing lesion arising from the right renal superior pole is not radiotracer avid and measures approximately 1.4 cm in diameter on series 3, image 93, similar compared with 11/10/2020. Unremarkable left kidney. Stomach and bowel: No abnormal uptake. There are scattered colonic diverticula. Urinary bladder: A similar mildly diffusely thick-walled appearance of the urinary bladder is noted. No definite abnormal uptake in the wall although assessment of the bladder is limited by PET-CT. Reproductive: There is moderate prominence of the prostate gland without elevated uptake. Vasculature: No abnormal uptake. There are diffuse atherosclerotic changes. The caliber of the infrarenal abdominal aorta is 4.4 x 4.2 cm on series 3, image 117 (previously measuring 3.7 cm in diameter). Lymph nodes: A lymph node deep to the left sternocleidomastoid muscle measures 1.1 x 0.7 cm on series 3, image 29, SUV max 3.1 (unchanged in size compared with the CT from 02/04/2023). Bones/joints: No abnormal uptake in the visualized axial and appendicular skeleton. Degenerative changes throughout the spine are noted. Soft tissues: There is a small focus of uptake in the superficial lateral deltoid muscle on the left, SUV max 5.0, without a well-defined lesion on the CT images. This is best demonstrated on PET series 4, image 49. Elevated uptake in the expected location of the distal right supraspinatus tendon is likely inflammatory, SUV max 3.7. METRICS: Mediastinal blood pool: SUV max 2.2 PET/PET skulltothi SUBSEQ [id number] IMPRESSION: 1. Mild uptake within a left cervical lymph node is noted (SUV max 3.1). This uptake is likely reactive, secondary to infectious or inflammatory involvement. Neoplastic involvement cannot be entirely excluded. 2. [place] tonsillar uptake is noted bilaterally, greatest on the left. This uptake may also be inflammatory or infectious in etiology. A neoplastic etiology is less likely but cannot be excluded particularly on the left. 3. Uptake in the right and left thyroid lobes is noted. Given the diffuse involvement, a benign etiology such as thyroiditis is favored. 4. Simple appearing right renal cysts are noted. A more complex lesion noted in the superior pole of the right kidney on the prior CT from 11/10/2020 is similar in size and is not radiotracer avid. Assessment of renal lesions can be limited by PET-CT. Dedicated multiphasic renal MRI with and without contrast would be useful for further characterization as clinically indicated. 5. A small focus of uptake in the superficial aspect of the lateral deltoid muscle is noted on the left without a definite corresponding lesion on the CT images, likely physiologic or artifactual in nature. 6. An infrarenal abdominal aortic aneurysm measures 4.4 x 4.2 cm, increased in size compared with 11/10/2020. 7. Similar mild urinary bladder wall thickening which may be related to cystitis or benign hypertrophy in the setting of an enlarged prostate gland. No focal mass appears to be present. 8. Additional nonurgent findings as detailed above.
== END 2023-02-08 06:05 | disposition home or self-care (01) ==
LOC: RAD 02-10 06:04
PROVIDERS: PCP Family Medicine; Visit Provider Nurse Practitioner Family
DX: C32.0 Malignant neoplasm of glottis (principal); C61 Malignant neoplasm of prostate; R93.3 Abnormal findings on diagnostic imaging of other parts of digestive tract; N28.9 Disorder of kidney and ureter, unspecified; I71.43 Infrarenal abdominal aortic aneurysm, without rupture
CPT/HCPCS: 78815; A9552

== ENCOUNTER → 2023-02-17 09:11 | Outpatient (BNVA) | payer OTHER, SELFPAY | PROVIDERS: PCP Family Medicine; Visit Provider Otolaryngology | DX: C32.0 Malignant neoplasm of glottis (principal); R49.0 Dysphonia | CPT/HCPCS: 99212 ==

== ENCOUNTER 2023-02-24 11:23 | Oncology outpatient (recurring) (ONCR) | payer OTHER, SELFPAY ==
--- NOTE | 2023-01-29 10:06 | N.ONRAD NP_ITS ---
Radiation Oncology Consultation Patient Name: Bernadette Reyes Date of : 1950 Date of Service: 01/29/2023 Attending Physician: Freddy Petersen M.D. Bernadette Reyes was seen in consultation this afternoon at the request of Gorge Roberson M.D. for consideration of head and neck radiotherapy in the management of a recently diagnosed glottic cancer. He was evaluated at the [facility] in December for change in voice quality. A flexible laryngoscopy identified a white papillomatous lesion on the laryngeal surface of the epiglottis and a similar abnormality upon the right anterior true vocal cord. A direct microscopic laryngoscopy was performed by Gorge Roberson M.D. on January 07, 2023. Intraoperative findings described lesions involving the aryepiglottic fold, right true vocal cord, and left true vocal cord. Excisions of the right and left true vocal cord nodules were performed, as well as, a biopsy of the left aryepiglottic fold. 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 The patient was referred for consideration of definitive radiotherapy. I discussed with Mr. Reyes the [place] [employer] On [employer] Staging for glottic cancer and the patient's clinical stage I (T1aN0) glottic cancer specific to his diagnosis. I also reviewed the National Comprehensive Cancer Network Guidelines endorsing partial laryngectomy or radiotherapy and the [employer] trial that randomized T1 and T2 glottic cancer patients to conventional fractionation or hypofractionation. The study reported non-inferiority of the accelerated treatment (local progression-free survival trended positively for the hypofractionated arm). I anticipate an approximate 5 ??? week course of accelerated radiotherapy. Prior to beginning treatment, a computed tomographic radiotherapy planning scan will be acquired to delineate the clinical target volume. The potential toxicities of head and neck radiotherapy were reviewed. He has verbalized understanding would like to proceed as recommended. The patient's medical treatment plan has been discussed with Gorge Roberson M.D. Signed by: Dr. Freddy Petersen 02/03/2023 3:22:14 PM
--- NOTE | 2023-02-11 14:06 | ONCRAD TMN_ITS ---
Radiation Oncology Weekly Treatment Management Patient: Yahaira Reyes MR#: [id number] : 1950> Attending Physician: Chacorta Johnson Date of Service: 02/11/2023 Referring Physician(s) : Dr. 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 ID: CTV, Energy: 6X, Dose/Fx (cGy): 225, #Fx: , Dose Correction (cGy): 0, Total Dose (cGy): 675, Start Date: 02/06/2023, Elapsed Days: 4 Reason for visit: The patient is being seen today as part of their regularly scheduled weekly on treatment visits to assess for acute toxicities from radiotherapy. Review of Systems: Mr. Reyes is cheerful and doing well. He has no complaints. He has noticed some discomfort in the left scapula and down his left arm. He has not had a neck injury recently or in the distant past. No sore throat. No difficulty with nutrition. He is applying moisturizer to the skin of his neck. He tolerates the mask well. No questions related to treatment. He does question if we have the results off his PET scan which was performed this past Friday. We do not have it yet. Vital Signs: Performed on 02/11/2023 1:10 PM BMI - 25.53 kg/m2 (high), Height - 67 in, Weight - 163 lbs, Temperature - 97.1 f, Pulse - 60 /min, Respiration - 16 /min, O2 Sat - 97 %, Pain - 0, Fatigue - 0 and BP - 109/ 74 mm(hg). Physical Exam: Alert, oriented, no acute distress. His voice is slightly hoarse but easy to understand. He has no erythema of the skin of the neck. He has no cervical lymphadenopathy. Lungs are clear bilaterally. Heart rhythm regular. No muscle wasting in the left arm or hand. Strength is symmetrical in comparison with the right hand and arm. Imaging: Radiation therapy imaging related to accurate target localization (i.e. KV, MV and CBCT) was reviewed. Appropriate changes, if any, were made to ensure treatment accuracy. Plan: Continue RT per plan. Await PET results. Signed by: Chacorta Johnson 02/11/2023 2:04:41 PM
--- NOTE | 2023-02-12 14:06 | ONCRAD EPV_ITS ---
Radiation Oncology Established Patient Visit Patient: Eric Syed [id number] : 1950> Age: 72> Sex: Male> Dictated by: Chacorta Johnson Date of Service: 02/12/2023 Referring Physician(s) : Dr. 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 Yahaira Reyes, is a 71 -year-old gentleman with longstanding history of mildly elevated PSA, first evaluated was in February 2009 for increased PSA at 4.46 and with positive family history of prostate cancer at that time his VARINDER was 3+ and patient underwent TRUS P in February 2009 which showed mild chronic inflammation but no evidence of malignancy since then during follow-up his PSA was ranging from 3.8-7.8 and patient was managed for BPH as well as recurrent urinary tract infection and episode of hematuria for which he underwent cystoscopy showed no abnormality. And recently in October 2020 his follow-up PSA had increased to 10.8 and on VARINDER patient was found to have new development of right-sided firmness for which on October 27, 2020 he underwent TRUSP/biopsy which showed large volume, high-grade prostate cancer pathology confirmed 6 out of 11 biopsies positive for adenocarcinoma all on the right side, all with Ulysses score 5+5, on November 10, 2020 he underwent bone scan as well as CT scan of abdomen pelvis which showed no evidence of metastatic bone disease but moderate uptake in the right cervical spine C4-5 and x-ray of C-spine done on November 10, 2020 confirmed bilateral facet joint arthritis correspond to abnormality seen on bone scan. And no pelvic lymphadenopathy, infrarenal abdominal aortic aneurysm with a maximum diameter of 3.7 and aneurysm is new since 2014. Enhancing mass in the upper pole of right kidney is new since 2014 size 1.5 cm., Patient denies any bone pain, but use catheter for urination, denies any weight loss denies any fever or chills denies any nausea or vomiting diarrhea constipation. Started on Zoladex 10.8 mg along with Casodex on November 27, 2020 Completed radiation therapy along with Casodex on March 21, 2021 Came for follow-up, denies any specific complaints, no fever chills, no nausea or vomiting, no diarrhea or constipation, still smoke about 2 packs a day. Denies any new bony pains denies any dysuria or hematuria occasionally hot flashes but tolerating 3 monthly Zoladex well otherwise Radiotherapy to Date: Course: Glottis 2022, Treatment Site: Glottic Ca - T1, Ref. ID: CTV, Energy: 6X, Dose/Fx (cGy): 225, #Fx: , Dose Correction (cGy): 0, Total Dose (cGy): 1,125, Start Date: 02/06/2023, Elapsed Days: 6 Current History: Mr. Reyes was seen to review the results of his PET scan. Several things were mentioned, though there were no findings suspicious for metastatic disease. Mild uptake in the [place] tonsils was noted, SUV max 8.5 on the left and 7.4 on the right. There was uptake in both lobes of the thyroid, SUV max 7.8 on the right and 7.2 on the left. A left cervical node had slight uptake, SUV max 3.1. A complex cystic lesion was noted in the superior pole of the right kidney. Also a small focus of uptake was noted in the superficial aspect of the lateral deltoid muscle. An infrarenal abdominal aortic aneurysm was described, measuring 4.4 x 4.2 cm. Thickening of the bladder wall was noted. In terms of the bladder, the patient has been catheterizing himself because of severe obstructive symptoms. The measurements of the abdominal aortic do not any indicate any need for any measures right now. The area of the deltoid muscle uptake is asymptomatic. The renal cysts can be followed on imaging with future scans. The thyroid can also be followed, though there is no sign nothing suspicious about the activity. The left neck and the tonsil areas were examined today without any specific abnormality being noted. They can be followed on physical exam. Current Medications: Albuterol Sulfate HFA, allergy, ascorbic Acid, bicalutamide, budesonide-Formoterol Fumarate, finasteride, methenamine Hippurate, pravachol, saw [place], terazosin HCl, zinc. Allergies: No Known Allergies Current Complaints / Review of Systems: . Vital Signs: Performed on 02/12/2023 1:09 PM BMI - 25.592 kg/m2 (high), Height - 67 in, Weight - 163.4 lbs, Temperature - 97.1 f, Pulse - 60 /min, Respiration - 16 /min, O2 Sat - 97 %, Pain - 0, Fatigue - 0 and BP - 124/ 83 mm(hg). Physical Exam: General: Alert and oriented x 3. No acute distress. HEENT: Oral cavity has no lesions. In the oropharynx the tonsil areas appear normal. The patient was resistant to palpation but I could not detect any nodularity or mass in the tonsillar areas. NECK: Supple. Palpation of the thyroid area reveals no tenderness. No masses or nodularity detected. Palpation of the lymph node chains of the neck reveals no abnormality at all. Performance Status: Lab: None pending. Pathology: Primary, c32.0 - malignant neoplasm of glottis, Diagnosed 01/07/2023 (active) stage i, t1a, n0, m0 and Primary, c61 - malignant neoplasm of prostate, Diagnosed 10/27/2020 (active) stage iiic, t2b, n0, m0, p>=10<20, g5. Imaging: See HPI Impression: Results of the PET were discussed with the patient. I reviewed the abnormalities described. I told him there is nothing suspicious for metastatic disease. Treatment will continue as planned. Signed by: 02/12/2023 2:05:03 PM <<Signature on File>> Time spent with patient: CPT Code: CPT Code:
--- NOTE | 2023-02-18 14:29 | ONCRAD TMN_ITS ---
Radiation Oncology Weekly Treatment Management Patient: Eric Whyte MR#: [id number] : 1950> Attending Physician: Chacorta Johnson Date of Service: 02/18/2023 Referring Physician(s) : Dr. 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 ID: , CTV, Energy: 6X, Dose/Fx (cGy): 225, #Fx: , Dose Correction (cGy): 0, Total Dose (cGy): 2,025, Start Date: 02/06/2023, Elapsed Days: 12 Reason for visit: The patient is being seen today as part of their regularly scheduled weekly on treatment visits to assess for acute toxicities from radiotherapy. Review of Systems: He is doing well. His voice quality is better. He has no sore throat. No difficulty swallowing. He is eating a regular diet. He has no troublesome skin reaction. The discomfort in his left scapula and arm has improved. Vital Signs: Performed on 02/18/2023 1:08 PM BMI - 25.78 kg/m2 (high), Height - 67 in, Weight - 164.6 lbs, Temperature - 96.2 f, Pulse - 66 /min, Respiration - 18 /min, O2 Sat - 93 % (low), Pain - 0, Fatigue - 0 and BP - 92/ 68 mm(hg). Physical Exam: Alert, oriented, no distress. He has mild erythema of the skin of the neck and the treatment volume. Imaging: Radiation therapy imaging related to accurate target localization (i.e. KV, MV and CBCT) was reviewed. Appropriate changes, if any, were made to ensure treatment accuracy. Plan: Continue treatment as planned. I discussed that he may have some deterioration in the quality of his voice as treatment progresses. I discussed referral to physical therapy if his shoulder and arm gives him further trouble. Discussed that beyond physical therapy he would probably need an MRI of the neck. Discussed the results of his PET last week. He had no findings suspicious for metastatic disease, though several incidental findings were mentioned by the radiologist. Signed by: Chacorta Johnson 02/18/2023 2:27:17 PM
== END 2023-02-24 23:59 | disposition home or self-care (01) ==
PROVIDERS: PCP Family Medicine; Visit Provider Radiology Radiation Oncology
DX: Z51.0 Encounter for antineoplastic radiation therapy (principal); C32.8 Malignant neoplasm of overlapping sites of larynx; Z87.891 Personal history of nicotine dependence
CPT/HCPCS: 77290; 77295; 77300; 77334; 77336; 77387; 77412; 99024; 99215

== ENCOUNTER → 2023-03-17 10:07 | Outpatient (BNVA) | payer OTHER, SELFPAY | PROVIDERS: PCP Family Medicine; Visit Provider Otolaryngology | DX: C32.0 Malignant neoplasm of glottis (principal) | CPT/HCPCS: 31575; 99213 ==

== ENCOUNTER 2023-03-17 11:25 | Oncology outpatient (recurring) (ONCR) | payer OTHER, SELFPAY ==
--- NOTE | 2023-02-25 13:32 | ONCRAD TMN_ITS ---
Radiation Oncology Treatment Management Note Patient Name: Yahaira Reyes Date of : 1950 Date of Service: 02/25/2023 Attending Physician: Freddy Petersen M.D. Bernadette Reyes is a 72 year- old white male diagnosed with a clinical stage I (T1aN0) glottic cancer. He was evaluated at the [facility] in December for change in voice quality. A flexible laryngoscopy identified a white papillomatous lesion on the laryngeal surface of the epiglottis and a similar abnormality upon the right anterior true vocal cord. A direct microscopic laryngoscopy was performed by Gorge Roberson M.D. on January 07, 2023. Intraoperative findings described lesions involving the aryepiglottic fold, right true vocal cord, and left true vocal cord. Excisions of the right and left true vocal cord nodules were performed, as well as, a biopsy of the left aryepiglottic fold. 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 The patient has received 31.5 Gy of a prescribed 63 Gy with a 3D-conformal radiotherapy plan utilizing a wedge pair portal field design. Upon review of systems, he denied any complaints related to radiotherapy. On physical examination, the patient weighed 160 lbs. His temperature was 97 ???F and the blood pressure was 110/78 mmHg. His pulse was 68 bpm and the respiratory rate was 16. There was minimal erythema within the treatment robles. Continue glottic radiotherapy as prescribed. Signed by: Dr. Freddy Petersen 02/25/2023 1:30:54 PM
--- NOTE | 2023-02-28 09:30 | MR_ITS ---
WS: [id number] MRI/MRCP OF THE ABDOMEN WITHOUT GADOLINIUM ENHANCEMENT TECHNIQUE: Coronal T2 Fase BH, Axial T2 Fase BH, Axial T2 FS BH, Zxial 3D Valdez BH, Axial DWI BH, 2D MRCP Radial BH, 3D MRCP (Resp), and Axial 3D Dyn BH Post sequences. CLINICAL INFORMATION: complex lesion of right kidney COMPARISON: PET/CT 02/[address] abdomen pelvis November 10, 2020 FINDINGS: No hydronephrosis in either kidney. 10 mm complex lesion along the superior pole RIGHT kidney with a small amount of enhancement. This is not a simple cyst and remains indeterminate. Neoplasm not exclud ed and recommend continued annual surveillance with contrast-enhanced CT abdomen and pelvis with cont rast No additional suspicious enhancing renal lesions. Additional simple appearing renal cysts the largest on the RIGHT measuring 3.4 CM. Stable infrarenal abdominal aortic aneurysm measuring 4.4 x 4.2 cm AP by transverse is stable. Adrenal glands are normal. Normal visualized gallbladder. Normal portal vein and splenic vein. Normal visualized spleen. Tiny esophageal hiatal hernia. Tiny incidental hepatic cyst LEFT hepatic lobe ramona er dome MR/MR abdomen wo/w con* [id number] Impression: 1. 10 mm complex lesion along the superior pole RIGHT kidney with a small amou nt of enhancement. This is not a simple cyst and remains indeterminate. Neoplas m not excluded and recommend continued annual surveillance with contrast-enhanc ed CT abdomen and pelvis with contrast. 2. Additional simple RIGHT renal cysts largest measuring 3.4 CM. Smaller RIGHT renal cyst measuring 2.0 CM. 3. No hydronephrosis in either kidney. 4. A few tiny LEFT renal cysts 5. Stable infrarenal abdominal aortic aneurysm measuring 4.4 x 4.2 cm AP by tr ansverse as seen on the lead ramp agent imaging
[2023-02-28] MEDS: gadobenate dimeglumine 20 mL vial IV (11:01)
--- NOTE | 2023-03-04 14:01 | ONCRAD TMN_ITS ---
Radiation Oncology Weekly Treatment Management Patient: Eric Whyte MR#: [id number] : 1950> Attending Physician: Augusto Barkley Date of Service: 03/04/2023 Referring Physician(s) : Dr. 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 ID: CTV, Energy: 6X, Dose/Fx (cGy): 225, #Fx: , Dose Correction (cGy): 0, Total Dose (cGy): 4,275, Start Date: 02/06/2023, Elapsed Days: 26 Reason for visit: The patient is being seen today as part of their regularly scheduled weekly on treatment visits to assess for acute toxicities from radiotherapy. Review of Systems: Patient is present today with his . He complains of occasional dry cough. He uses throat lozenges as needed. He indicates that he and his both quit smoking in December. Vital Signs: Performed on 03/04/2023 1:00 PM BMI - 25.216 kg/m2 (high), Height - 67 in, Weight - 161.0 lbs, Temperature - 96.8 f, Pulse - 59 /min (low), Respiration - 16 /min, O2 Sat - 98 %, Pain - 0, Fatigue - 0 and BP - 131/ 69 mm(hg). Physical Exam: Alert and oriented male appearing his stated age. Skin in the treatment area is mildly erythematous. There is no moist desquamation. Imaging: Radiation therapy imaging related to accurate target localization (i.e. KV, MV and CBCT) was reviewed. Appropriate changes, if any, were made to ensure treatment accuracy. Plan: Results from his MRI of the abdomen February 28, 2023 were reviewed and discussed with the patient and his . Patient has a history of abdominal aortic aneurysm which was reported stable on the MRI. Additionally he has a 10 mm complex lesion along the superior pole of the right kidney with recommendation for continued annual surveillance. Plan to continue prescribed treatment. Signed by: Augusto Barkley 03/04/2023 2:00:05 PM
--- NOTE | 2023-03-11 13:42 | ONCRAD TMN_ITS ---
Radiation Oncology Weekly Treatment Management Patient: Eric Whyte MR#: [id number] : 1950> Attending Physician: Horace Nieves Date of Service: 03/11/2023 Referring Physician(s) : Dr. 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 ID: CTV, Energy: 6X, Dose/Fx (cGy): 225, #Fx: , Dose Correction (cGy): 0, Total Dose (cGy): 5,400, Start Date: 02/06/2023, Elapsed Days: 33 Reason for visit: The patient is being seen today as part of their regularly scheduled weekly on treatment visits to assess for acute toxicities from radiotherapy. Review of Systems: Some increase in hoarsenss. Mild sore throat. Able to eat ok. Not smoking since dx. Not able to gargle with salt and soda. Using Aquaphor for laryngeal skin. Vital Signs: Physical Exam: Brisk erythema over laryngeal region. No desquamation. Imaging: Radiation therapy imaging related to accurate target localization (i.e. KV, MV and CBCT) was reviewed. Appropriate changes, if any, were made to ensure treatment accuracy. Plan: Good tolerance of treatment Continue as planned. Signed by: Horace Nieves 03/11/2023 2:29:15 PM
--- NOTE | 2023-03-17 16:53 | N.ONRD TS_ITS ---
Radiation Oncology Treatment Summary Patient: Eric>Yahaira> MR#: [id number] : 1950> Age: 72> Sex: Male Dictated by: Horace Nieves Date of Service: 03/17/2023 Referring Physician(s) : Dr. 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 ID: [id number], Energy: 6X, Dose/Fx (cGy): 225, #Fx: 28 / 28, Dose Correction (cGy): 0, Total Dose (cGy): 6,300, Start Date: 02/06/2023, End Date: 03/17/2023, Elapsed Days: 39 Course: Prostate 2020, Treatment Site: Prostate Ca, Ref. ID: [id number], Energy: 15X, Dose/Fx (cGy): 200, #Fx: 23 / 23, Dose Correction (cGy): 0, Total Dose (cGy): 4,600, Start Date: 01/25/2021, End Date: 02/27/2021, Elapsed Days: 33 Treatment Site: ProstateBoost, Ref. ID: [id number], Energy: 15X, Dose/Fx (cGy): 200, #Fx: 16 / 16, Dose Correction (cGy): 0, Total Dose (cGy): 3,200, Start Date: 02/28/2021, End Date: 03/21/2021, Elapsed Days: 21 Clinical Summary: The patient tolerated RT well. He did develop increased hoarseness at the end of treatment. He had mild sore throat. He was able to eat well. Skin redness over the neck was treated with Auquaphor. Plan: End of treatment today. Continue on the above medication until the skin reaction resolves. Follow up in one month. Signed by: Horace Nieves>03/17/2023 4:52:37 PM <<Signature on File>>
== END 2023-03-27 23:59 | disposition home or self-care (01) ==
PROVIDERS: PCP Family Medicine; Visit Provider Radiology Radiation Oncology
DX: Z51.0 Encounter for antineoplastic radiation therapy (principal); C32.8 Malignant neoplasm of overlapping sites of larynx; Z79.899 Other long term (current) drug therapy; Z87.891 Personal history of nicotine dependence; R49.0 Dysphonia; R13.19 Other dysphagia; L59.8 Other specified disorders of the skin and subcutaneous tissue related to radiation
CPT/HCPCS: 74183; 77336; 77387; 77412; 99024; A9577

== ENCOUNTER → 2023-04-15 09:18 | Outpatient (BNVA) | payer OTHER, SELFPAY | PROVIDERS: PCP Family Medicine; Visit Provider Otolaryngology | DX: H61.22 Impacted cerumen, left ear (principal); C32.0 Malignant neoplasm of glottis | CPT/HCPCS: 99213 ==

== ENCOUNTER 2023-04-23 14:00 | Oncology outpatient (recurring) (ONCR) | payer OTHER, SELFPAY ==
--- NOTE | 2023-04-17 14:29 | ONCRAD EPV_ITS ---
Radiation Oncology Established Patient Visit Patient: Eric Syed [id number] : 1950> Age: 72> Sex: Male> Dictated by: Horace Nieves Date of Service: 04/17/2023 Referring Physician(s) : Dr. 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 ID: [id number] Energy: 6X, Dose/Fx (cGy): 225, #Fx: 28 / 28, Dose Correction (cGy): 0, Total Dose (cGy): 6,300, Start Date: 02/06/2023, End Date: 03/17/2023, Elapsed Days: 39 Course: Prostate 2020, Treatment Site: Prostate Ca, Ref. ID: [id number], Energy: 15X, Dose/Fx (cGy): 200, #Fx: 23 / 23, Dose Correction (cGy): 0, Total Dose (cGy): 4,600, Start Date: 01/25/2021, End Date: 02/27/2021, Elapsed Days: 33 Treatment Site: ProstateBoost, Ref. ID: [id number], Energy: 15X, Dose/Fx (cGy): 200, #Fx: 16 / 16, Dose Correction (cGy): 0, Total Dose (cGy): 3,200, Start Date: 02/28/2021, End Date: 03/21/2021, Elapsed Days: 21 Current History: Feeling better overall. Swallowing and eating well. Breathing well. Voice omproed. Quit smoking at time of dx 12/2022. He has a FU with Dr. Roberson next month. Current Medications: Albuterol Sulfate HFA, allergy, ascorbic Acid, bicalutamide, budesonide-Formoterol Fumarate, finasteride, methenamine Hippurate, pravachol, saw [place], terazosin HCl, zinc. Allergies: No Known Allergies Current Complaints / Review of Systems: . Vital Signs: Performed on 04/17/2023 1:08 PM BMI - 25.154 kg/m2 (high), Height - 67 in, Weight - 160.6 lbs, Temperature - 97 f, Pulse - 69 /min, Respiration - 20 /min, O2 Sat - 94 % (low), Pain - 0, Fatigue - 0 and BP - 101/ 61 mm(hg)(/low). Physical Exam: General: Alert and oriented x 3. No acute distress. Good voice. Oral cavity ok Edend[place]. Mild tanning and erythema over central neck. No palpable cervical adenopathy. Performance Status: 0 Lab: None pending. Pathology: Primary, c32.0 - malignant neoplasm of glottis, Diagnosed 01/07/2023 (active) stage i, t1a, n0, m0 and Primary, c61 - malignant neoplasm of prostate, Diagnosed 10/27/2020 (active) stage iiic, t2b, n0, m0, p>=10<20, g5. 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 Good recovery from treatment. He will now return for ongoing follow-up to Dr. Roberson. Signed by: 04/17/2023 2:28:02 PM <<Signature on File>> Time spent with patient: CPT Code: CPT Code:
[2023-04-23 11:46] VITALS: BP 102/68; PULSE 66; RESP 17; TEMP 36.8; O2SAT 90
[2023-04-23 12:03] LABS: Basophils % 0.6 %; Eosinophils # 0.4 10^3/uL (0.0-0.8); Eosinophils % 5.9 %; Hematocrit 37.5 % (37-53); Lymphocytes # 0.8 10^3/uL (0.8-4.8); Lymphocytes % 12.7 %; Mean Corpuscular HGB Conc 32.5 g/dL (30-55); Mean Corpuscular Hemoglobin 29.1 pg (27-33); Mean Corpuscular Volume 89.5 fl (82-101); Mean Platelet Volume 9.2 fL (7.4-10.4); Monocytes # 0.6 10^3/uL (0.2-0.9); Neutrophils % 71.2 %; Nucleated Red Blood Cells % 0 %; Platelet Count 297 10^3/cmm (157-399); Red Blood Count 4.19 10^6/uL (3.85-5.65); Red Cell Distribution Width 13.4 % (12.1-15.1); White Blood Count 6.46 10^3/uL (3.29-11.43)
[2023-04-23 12:38] LABS: Alanine Aminotransferase 8 U/L (0-41); Albumin Level 3.8 g/dL (3.5-5.2); Alkaline Phosphatase 71 U/L (40-130); Anion Gap 15.9 (5-19); Aspartate Amino Transferase 11 U/L (0-40); Blood Urea Nitrogen 15 mg/dL (8-23); Calcium 9.1 mg/dL (8.5-10.5); Carbon Dioxide 25 mmol/L (22-29); Chloride 100 mmol/L (98-107); Globulin 3.6 g/dL (1.3-4.6); Glucose 107 mg/dL (65-115); Osmolality Calculated 285 mOsm/kg (285-295); Potassium 3.9 mmol/L (3.5-5.1); Sodium 137 mmol/L (136-145); Testosterone Total 2.5 ng/dL (193-740); Total Bilirubin 0.3 mg/dL (0.15-1.2); Total Protein 7.4 g/dL (6.6-8.7)
[2023-04-23 12:40] LABS: Prostate Specific Antigen < 0.014 ng/mL (0-4)
[2023-04-23] MEDS: leuprolide 22.5 mg Kit IM (13:41)
[2023-04-23 13:45] VITALS: BP 98/63; PULSE 69; RESP 18; TEMP 36.6; O2SAT 98
== END 2023-04-26 23:59 | disposition home or self-care (01) ==
PROVIDERS: PCP Family Medicine; Visit Provider Internal Medicine Medical Oncology
DX: Z51.11 Encounter for antineoplastic chemotherapy (principal); C32.8 Malignant neoplasm of overlapping sites of larynx; R49.0 Dysphonia; R13.19 Other dysphagia; L59.8 Other specified disorders of the skin and subcutaneous tissue related to radiation; Z79.899 Other long term (current) drug therapy; Z87.891 Personal history of nicotine dependence; N28.89 Other specified disorders of kidney and ureter; C32.0 Malignant neoplasm of glottis; C61 Malignant neoplasm of prostate; Z79.818 Long term (current) use of other agents affecting estrogen receptors and estrogen levels; Z53.9 Procedure and treatment not carried out, unspecified reason
CPT/HCPCS: 36415; 80053; 84153; 84403; 85025; 96402; 99024; 99215; J9217

== ENCOUNTER → 2023-05-14 11:28 | Outpatient (BNVA) | payer OTHER, SELFPAY | PROVIDERS: PCP Family Medicine; Visit Provider Otolaryngology | DX: C32.0 Malignant neoplasm of glottis (principal) | CPT/HCPCS: 31575; 99213; 99214 ==

== ENCOUNTER 2023-07-16 11:28 | Oncology outpatient (recurring) (ONCR) | payer OTHER, SELFPAY ==
[2023-07-16 12:13] VITALS: BP 86/65; PULSE 82; RESP 16; TEMP 37; O2SAT 96
[2023-07-16 12:35] LABS: Basophils % 0.5 %; Eosinophils # 0.2 10^3/uL (0.0-0.8); Eosinophils % 2.8 %; Hematocrit 38.2 % (37-53); Lymphocytes # 1.1 10^3/uL (0.8-4.8); Lymphocytes % 17.9 %; Mean Corpuscular Hemoglobin 29.2 pg (27-33); Mean Corpuscular Volume 88.6 fl (82-101); Monocytes # 0.4 10^3/uL (0.2-0.9); Neutrophils % 71.1 %; Nucleated Red Blood Cells % 0 %; Platelet Count 286 10^3/cmm (157-399); Red Blood Count 4.31 10^6/uL (3.85-5.65); Red Cell Distribution Width 14.4 % (12.1-15.1); White Blood Count 6.04 10^3/uL (3.29-11.43)
[2023-07-16 13:08] LABS: Alanine Aminotransferase 10 U/L (0-41); Albumin Level 3.8 g/dL (3.5-5.2); Alkaline Phosphatase 76 U/L (40-130); Anion Gap 13.7 (5-19); Aspartate Amino Transferase 12 U/L (0-40); Blood Urea Nitrogen 25 mg/dL (8-23); Calcium 8.8 mg/dL (8.5-10.5); Carbon Dioxide 24 mmol/L (22-29); Chloride 104 mmol/L (98-107); Globulin 3.5 g/dL (1.3-4.6); Glucose 110 mg/dL (65-115); Osmolality Calculated 291 mOsm/kg (285-295); Potassium 3.7 mmol/L (3.5-5.1); Sodium 138 mmol/L (136-145); Total Bilirubin 0.3 mg/dL (0.15-1.2); Total Protein 7.3 g/dL (6.6-8.7)
[2023-07-16 13:19] LABS: Prostate Specific Antigen < 0.014 ng/mL (0-4)
[2023-07-16 13:40] LABS: Testosterone Total 8.7 ng/dL (193-740)
[2023-07-16] MEDS: leuprolide 22.5 mg Kit IM (14:58)
== END 2023-07-27 23:59 | disposition home or self-care (01) ==
PROVIDERS: PCP Family Medicine; Visit Provider Internal Medicine Medical Oncology
DX: Z51.11 Encounter for antineoplastic chemotherapy (principal); C32.8 Malignant neoplasm of overlapping sites of larynx; R49.0 Dysphonia; R13.19 Other dysphagia; L59.8 Other specified disorders of the skin and subcutaneous tissue related to radiation; Z79.899 Other long term (current) drug therapy; Z87.891 Personal history of nicotine dependence; N28.89 Other specified disorders of kidney and ureter; C61 Malignant neoplasm of prostate
CPT/HCPCS: 36415; 80053; 84153; 84403; 85025; 96402; 99214; J9217

== ENCOUNTER 2023-09-30 07:27 | Outpatient (CLI) | payer OTHER, SELFPAY ==
--- NOTE | 2023-09-30 07:32 | CT_ITS ---
WS: [id number] CT TEMPORAL BONES TECHNIQUE: Noncontrast CT of the temporal bones with coronal and sagittal reformatted images. CLINICAL INFORMATION: Mixed conductive and sensorineural hearing loss COMPARISON: None. DLP: 351.[address] scans at [facility] use at least one of these dose optimization techniques: automated e xposure control; mA and/or kV adjustment per patient size (includes targeted exams where dose is matc hed to clinical indication); or iterative reconstruction. FINDINGS: Paranasal sinusitis with frothy secretions in the LEFT maxillary sinus. Mild mucosal thicke fausto in the ethmoid air cells and RIGHT maxillary sinus. Sphenoid sinuses are well aerated. Cavernous carotid calcification. RIGHT: Mastoid air cells are well aerated. Normal external auditory canal. Ossicles are normal in appearance . Middle ear is well aerated. Normal tegmen tympani. Semicircular canals and cochlea are normal in ap pearance. Prussak's space is normal. Normal inner ear structures. Normal vestibular aqueduct. Facial nerve recess is normal. LEFT: Prior postoperative changes partial mastoidectomy. Diffuse circumferential soft tissue thickeni ng in the mastoidectomy bowl. EAC is patent. Opacification and sclerosis of the residual mastoid air cells. Partial erosion or resection of the ossicles. Chronic appearing erosion of the scutum. Thicken ing and retraction of the tympanic membrane. Soft tissue thickening extends to Prussaks space and epi tympanum. Normal semicircular canals. Normal facial nerve recess. Normal cochlea. IMPRESSION: 1. RIGHT mastoid air cells are well aerated. Normal RIGHT inner ear structures and ossicles. 2. Prior postoperative changes LEFT partial mastoidectomy with opacification and sclerosis of the re sidual mastoid air cells. 3. Diffuse soft tissue thickening in the mastoidectomy bowl with erosive changes involving the masto idectomy defect extending to the aditus ad antrum. Soft tissue thickening extends into Prussak space and epitympanum. Findings likely due to chronic postoperative inflammatory changes. Residual or recur rent cholesteatoma not excluded. Recommend direct visualization. 4. Partial erosion or resection of the LEFT ossicles. 5. Inflammatory changes in the paranasal sinuses with LEFT maxillary sinusitis.
== END 2023-09-30 07:28 | disposition home or self-care (01) ==
LOC: RAD 07:27
PROVIDERS: PCP Family Medicine; Visit Provider Specialist
DX: H90.8 Mixed conductive and sensorineural hearing loss, unspecified (principal); Z98.890 Other specified postprocedural states; R93.0 Abnormal findings on diagnostic imaging of skull and head, not elsewhere classified
CPT/HCPCS: 70480

== ENCOUNTER 2023-10-08 12:46 | Oncology outpatient (recurring) (ONCR) | payer OTHER, SELFPAY ==
[2023-10-08 13:51] LABS: Basophils % 0.6 %; Eosinophils # 0.4 10^3/uL (0.0-0.8); Eosinophils % 5.3 %; Hematocrit 40.7 % (37-53); Lymphocytes # 1.5 10^3/uL (0.8-4.8); Lymphocytes % 23.4 %; Mean Corpuscular HGB Conc 32.9 g/dL (30-55); Mean Corpuscular Hemoglobin 29.6 pg (27-33); Mean Corpuscular Volume 89.8 fl (82-101); Mean Platelet Volume 9.1 fL (7.4-10.4); Monocytes # 0.6 10^3/uL (0.2-0.9); Monocytes % 9.7 %; Neutrophils # 3.89 10^3/uL (1.8-7.7); Neutrophils % 59.2 %; Nucleated Red Blood Cells % 0 %; Platelet Count 296 10^3/cmm (157-399); Red Blood Count 4.53 10^6/uL (3.85-5.65); Red Cell Distribution Width 15.1 % (12.1-15.1); White Blood Count 6.58 10^3/uL (3.29-11.43)
[2023-10-08 14:23] LABS: Alanine Aminotransferase 15 U/L (0-41); Albumin Level 4.1 g/dL (3.5-5.2); Alkaline Phosphatase 90 U/L (40-130); Anion Gap 16.2 (5-19); Aspartate Amino Transferase 22 U/L (0-40); Blood Urea Nitrogen 20 mg/dL (8-23); Calcium 8.5 mg/dL (8.5-10.5); Carbon Dioxide 25 mmol/L (22-29); Chloride 99 mmol/L (98-107); Globulin 3.6 g/dL (1.3-4.6); Glucose 100 mg/dL (65-115); Osmolality Calculated 285 mOsm/kg (285-295); Potassium 4.2 mmol/L (3.5-5.1); Sodium 136 mmol/L (136-145); Total Bilirubin 0.4 mg/dL (0.15-1.2); Total Protein 7.7 g/dL (6.6-8.7)
[2023-10-08 14:24] LABS: Prostate Specific Antigen < 0.014 ng/mL (0-4)
[2023-10-08] MEDS: leuprolide 22.5 mg Kit IM (15:39)
[2023-10-08 15:44] VITALS: BP 123/83; PULSE 63; RESP 18; TEMP 36.4; O2SAT 91
== END 2023-10-26 23:59 | disposition home or self-care (01) ==
PROVIDERS: Nurse Practitioner Family; PCP Family Medicine; Visit Provider Internal Medicine Medical Oncology
DX: Z51.11 Encounter for antineoplastic chemotherapy (principal); C61 Malignant neoplasm of prostate; C32.8 Malignant neoplasm of overlapping sites of larynx; R49.0 Dysphonia; R13.19 Other dysphagia; L59.8 Other specified disorders of the skin and subcutaneous tissue related to radiation; Z79.899 Other long term (current) drug therapy; Z87.891 Personal history of nicotine dependence; N28.89 Other specified disorders of kidney and ureter
CPT/HCPCS: 36415; 80053; 84153; 84403; 85025; 96402; 99214; J9217

== ENCOUNTER → 2023-10-23 09:12 | Outpatient (BNVA) | payer OTHER, SELFPAY | PROVIDERS: PCP Family Medicine; Visit Provider Otolaryngology | DX: C32.0 Malignant neoplasm of glottis (principal) | CPT/HCPCS: 31575; 99214 ==

== ENCOUNTER → 2023-11-27 09:05 | Outpatient (BNVA) | payer OTHER, SELFPAY | PROVIDERS: PCP Family Medicine; Visit Provider Otolaryngology | DX: C32.0 Malignant neoplasm of glottis (principal); R49.0 Dysphonia | CPT/HCPCS: 31575; 99213; 99214 ==

== ENCOUNTER 2023-12-31 11:34 | Oncology outpatient (recurring) (ONCR) | payer OTHER, SELFPAY ==
[2023-12-31 12:02] LABS: Basophils % 0.5 %; Eosinophils # 0.3 10^3/uL (0.0-0.8); Eosinophils % 3.7 %; Lymphocytes # 1.3 10^3/uL (0.8-4.8); Lymphocytes % 17.7 %; Mean Corpuscular HGB Conc 32.8 g/dL (30-55); Mean Corpuscular Hemoglobin 29.1 pg (27-33); Mean Corpuscular Volume 88.6 fl (82-101); Mean Platelet Volume 9.3 fL (7.4-10.4); Monocytes # 0.6 10^3/uL (0.2-0.9); Monocytes % 8.6 %; Neutrophils # 4.94 10^3/uL (1.8-7.7); Neutrophils % 67.3 %; Nucleated Red Blood Cells % 0 %; Platelet Count 296 10^3/cmm (157-399); Red Cell Distribution Width 14.2 % (12.1-15.1); White Blood Count 7.34 10^3/uL (3.29-11.43)
[2023-12-31 12:29] LABS: Alanine Aminotransferase 9 U/L (0-41); Albumin Level 3.8 g/dL (3.5-5.2); Alkaline Phosphatase 74 U/L (40-130); Blood Urea Nitrogen 21 mg/dL (8-23); Calcium 8.6 mg/dL (8.5-10.5); Carbon Dioxide 22 mmol/L (22-29); Chloride 103 mmol/L (98-107); Globulin 3.3 g/dL (1.3-4.6); Glucose 115 mg/dL (65-115); Osmolality Calculated 290 mOsm/kg (285-295); Sodium 138 mmol/L (136-145); Total Bilirubin 0.4 mg/dL (0.15-1.2); Total Protein 7.1 g/dL (6.6-8.7)
[2023-12-31 12:39] LABS: Prostate Specific Antigen < 0.014 ng/mL (0-4)
[2023-12-31 12:40] LABS: Aspartate Amino Transferase 13 U/L (0-40)
[2023-12-31] MEDS: leuprolide 22.5 mg Kit IM (14:21)
== END 2024-01-25 23:59 | disposition home or self-care (01) ==
PROVIDERS: Internal Medicine; PCP Family Medicine; Visit Provider Internal Medicine Medical Oncology
DX: Z51.11 Encounter for antineoplastic chemotherapy (principal); C61 Malignant neoplasm of prostate; C32.0 Malignant neoplasm of glottis; Z79.899 Other long term (current) drug therapy; Z87.891 Personal history of nicotine dependence; N28.89 Other specified disorders of kidney and ureter; Z79.818 Long term (current) use of other agents affecting estrogen receptors and estrogen levels; Z92.3 Personal history of irradiation; Z53.9 Procedure and treatment not carried out, unspecified reason
CPT/HCPCS: 36415; 80053; 84153; 84403; 85025; 96402; 99213; J9217

== ENCOUNTER 2024-03-24 11:15 | Oncology outpatient (recurring) (ONCR) | payer OTHER, SELFPAY ==
--- NOTE | 2024-03-01 10:00 | CT_ITS ---
WS: [id number] CT CHEST, ABDOMEN AND PELVIS WITH CONTRAST HISTORY: prostate cancer TECHNIQUE: Contiguous 5 mm axial imaging performed through the chest, abdomen and pelvis with IV cont rast, oral contrast has been provided. Coronal and sagittal reformats chest. Coronal and sagittal ref ormats through the abdomen and pelvis. All CT scans at [facility] use at least one of these d ose optimization techniques: automated exposure control; mA and/or kV adjustment per patient size (in cludes targeted exams where dose is matched to clinical indication); or iterative reconstruction. CONTRAST: Omnipaque 350; 100 mL IV. DLP: 1031.95 mGy.cm COMPARISON: 11/10/2020, PET/CT of 02/08/[address]: Chronic emphysema. No pulmonary mass or nodule. Subsegmental atelectasis LEFT lower lobe. N o pericardial or pleural effusion. No mediastinal or hilar adenopathy. Mild atherosclerosis aorta. No rmal size heart. Small hiatal hernia. No osteoblastic bone disease. Abdomen CT: Normal size liver. There are few scattered hypodensities which are too small to character ize. Normal gallbladder. No bile duct dilatation. Negative pancreas. Normal size spleen with granulom wilder. No adrenal mass. Bilateral renal cysts. No solid mass. Indeterminate mass upper pole RIGHT kidne y is reidentified measuring 9 mm in diameter which is smaller than the prior study. No obstruction. M ild atherosclerosis aorta. Abdominal aortic aneurysm is reidentified measuring 4.6 cm transversely. A neurysm has increased in diameter since 2020. Prior diameter of 3.6 cm. Increasing asymmetric and ecc entric thrombus within the lumen of the aorta. Mesenteric arteries are patent. Well distended stomach. No small bowel obstruction. Mild diffuse constipation. Mild diverticular segundo en distal colon. Pelvic CT: No free fluid in the pelvis. Prostate gland is mildly prominent and heterogeneous encroach ing into the bladder. Prostate is smaller in size than on the prior study. There is diffuse bladder w all thickening. There are a few additional areas within the bladder of asymmetric wall thickening whi ch is indeterminate for uroepithelial lesion. The most significant along the inferior bladder. No ascites or adenopathy. L3 anterolisthesis by 4 mm. Advanced degenerative disc disease in the lower lumbar spine. CT/CT chest abdpel w/*[id number] IMPRESSION: 1. Diffuse mild bladder wall thickening with a few areas of more asymmetric th ickening along the base of the bladder. Early uroepithelial neoplasm is not exc luded on this appearance. 2. No ascites or adenopathy. 3. No pulmonary mass or nodule. 4. Enlarging infrarenal abdominal aortic aneurysm with a maximum transverse di ameter of 4.6 cm, increased from 3.6 cm in 2020. 5. Bilateral renal cysts. No solid or enlarging mass. 6. Chronic emphysema. 7. Degenerative changes in the lower lumbar spine. No osteoblastic metastatic disease identified.
[2024-03-01] MEDS: iohexol 350 mg/mL 500 mL Btl (per mL) PO (10:39)
[2024-03-01 10:41] LABS: Blood Urea Nitrogen 23 mg/dL (8-23)
[2024-03-01] MEDS: iohexol 350 mg/mL 500 mL Btl (per mL) IV (10:55)
[2024-03-24 11:13] LABS: Basophils # 0.1 10^3/uL (0.0-0.1); Basophils % 0.9 %; Eosinophils # 0.4 10^3/uL (0.0-0.8); Eosinophils % 5.5 %; Hematocrit 40.1 % (37-53); Lymphocytes # 1.5 10^3/uL (0.8-4.8); Lymphocytes % 22.7 %; Mean Corpuscular HGB Conc 33.4 g/dL (30-55); Mean Corpuscular Hemoglobin 30.3 pg (27-33); Mean Corpuscular Volume 90.7 fl (82-101); Mean Platelet Volume 9.1 fL (7.4-10.4); Monocytes # 0.6 10^3/uL (0.2-0.9); Neutrophils # 4.03 10^3/uL (1.8-7.7); Neutrophils % 60.3 %; Nucleated Red Blood Cells % 0 %; Platelet Count 340 10^3/cmm (157-399); Red Blood Count 4.42 10^6/uL (3.85-5.65); Red Cell Distribution Width 15.1 % (12.1-15.1); White Blood Count 6.69 10^3/uL (3.29-11.43)
[2024-03-24 11:56] LABS: Alanine Aminotransferase 10 U/L (0-41); Albumin Level 3.9 g/dL (3.5-5.2); Alkaline Phosphatase 92 U/L (40-130); Aspartate Amino Transferase 16 U/L (0-40); Blood Urea Nitrogen 25 mg/dL (8-23); Calcium 8.6 mg/dL (8.5-10.5); Carbon Dioxide 22 mmol/L (22-29); Chloride 104 mmol/L (98-107); Globulin 3.1 g/dL (1.3-4.6); Glucose 100 mg/dL (65-115); Osmolality Calculated 294 mOsm/kg (285-295); Prostate Specific Antigen < 0.014 ng/mL (0-4); Sodium 140 mmol/L (136-145); Testosterone Total 4.7 ng/dL (193-740); Total Bilirubin 0.3 mg/dL (0.15-1.2)
[2024-03-24] MEDS: leuprolide 22.5 mg Kit IM (14:24)
== END 2024-03-27 23:59 | disposition home or self-care (01) ==
PROVIDERS: Nurse Practitioner Family; PCP Family Medicine; Visit Provider Internal Medicine Medical Oncology
DX: N28.1 Cyst of kidney, acquired (principal); I71.40 Abdominal aortic aneurysm, without rupture, unspecified; Z51.12 Encounter for antineoplastic immunotherapy; Z79.899 Other long term (current) drug therapy; C61 Malignant neoplasm of prostate; C32.0 Malignant neoplasm of glottis; Z92.3 Personal history of irradiation; N32.89 Other specified disorders of bladder; Z51.11 Encounter for antineoplastic chemotherapy
CPT/HCPCS: 36415; 71260; 74177; 80053; 82565; 84153; 84403; 84520; 85025; 96402; 99214; J9217; Q9967

== ENCOUNTER → 2024-05-04 12:37 | Outpatient (BNVA) | payer OTHER, SELFPAY | PROVIDERS: PCP Family Medicine; Referring Provider Internal Medicine Medical Oncology; Visit Provider Internal Medicine | DX: I49.8 Other specified cardiac arrhythmias (principal); R07.9 Chest pain, unspecified | CPT/HCPCS: 93005 ==

== ENCOUNTER 2024-06-16 11:02 | Oncology outpatient (recurring) (ONCR) | payer OTHER, SELFPAY ==
[2024-06-16 11:37] LABS: Basophils % 0.3 %; Eosinophils # 0.3 10^3/uL (0.0-0.8); Eosinophils % 4.7 %; Hematocrit 39.6 % (37-53); Lymphocytes # 1.3 10^3/uL (0.8-4.8); Lymphocytes % 22.8 %; Mean Corpuscular HGB Conc 32.3 g/dL (30-55); Mean Corpuscular Hemoglobin 28.6 pg (27-33); Mean Corpuscular Volume 88.6 fl (82-101); Mean Platelet Volume 9.2 fL (7.4-10.4); Monocytes # 0.5 10^3/uL (0.2-0.9); Monocytes % 9.2 %; Neutrophils # 3.58 10^3/uL (1.8-7.7); Neutrophils % 62.3 %; Nucleated Red Blood Cells % 0 %; Platelet Count 264 10^3/cmm (157-399); Red Blood Count 4.47 10^6/uL (3.85-5.65); Red Cell Distribution Width 13.9 % (12.1-15.1); White Blood Count 5.75 10^3/uL (3.29-11.43)
[2024-06-16 12:05] LABS: Alanine Aminotransferase 12 U/L (0-41); Albumin Level 3.8 g/dL (3.5-5.2); Alkaline Phosphatase 94 U/L (40-130); Anion Gap 14.7 (5-19); Aspartate Amino Transferase 15 U/L (0-40); Blood Urea Nitrogen 17 mg/dL (8-23); Calcium 8.7 mg/dL (8.5-10.5); Carbon Dioxide 26 mmol/L (22-29); Chloride 105 mmol/L (98-107); Creatinine Clr Calc Pharmacy 64.9993; Globulin 2.9 g/dL (1.3-4.6); Glucose 85 mg/dL (65-115); Osmolality Calculated 295 mOsm/kg (285-295); Potassium 3.7 mmol/L (3.5-5.1); Sodium 142 mmol/L (136-145); Total Bilirubin 0.3 mg/dL (0.15-1.2); Total Protein 6.7 g/dL (6.6-8.7)
[2024-06-16 12:16] LABS: Prostate Specific Antigen < 0.014 ng/mL (0-4)
[2024-06-16] MEDS: leuprolide 22.5 mg Kit IM (14:34)
== END 2024-06-26 23:59 | disposition home or self-care (01) ==
PROVIDERS: Nurse Practitioner Family; PCP Family Medicine; Visit Provider Internal Medicine Medical Oncology
DX: Z51.11 Encounter for antineoplastic chemotherapy (principal); C61 Malignant neoplasm of prostate; C32.0 Malignant neoplasm of glottis; Z79.899 Other long term (current) drug therapy; Z92.3 Personal history of irradiation; N28.1 Cyst of kidney, acquired; I71.40 Abdominal aortic aneurysm, without rupture, unspecified
CPT/HCPCS: 36415; 80053; 84153; 85025; 96402; 99214; J9217

== ENCOUNTER 2024-09-23 06:59 | Oncology outpatient (recurring) (ONCR) | payer OTHER, SELFPAY ==
[2024-09-23 07:42] LABS: Basophils % 0.5 %; Eosinophils # 0.4 10^3/uL (0.0-0.8); Eosinophils % 5.4 %; Hematocrit 38.4 % (37-53); Lymphocytes # 1.6 10^3/uL (0.8-4.8); Mean Corpuscular HGB Conc 33.1 g/dL (30-55); Mean Corpuscular Hemoglobin 28.7 pg (27-33); Mean Corpuscular Volume 86.7 fl (82-101); Mean Platelet Volume 9.3 fL (7.4-10.4); Monocytes # 0.6 10^3/uL (0.2-0.9); Monocytes % 8.4 %; Neutrophils # 3.99 10^3/uL (1.8-7.7); Neutrophils % 60.9 %; Nucleated Red Blood Cells % 0 %; Platelet Count 273 10^3/cmm (157-399); Red Blood Count 4.43 10^6/uL (3.85-5.65); Red Cell Distribution Width 15.2 % (12.1-15.1); White Blood Count 6.54 10^3/uL (3.29-11.43)
[2024-09-23 08:10] LABS: Alanine Aminotransferase 9 U/L (0-41); Albumin Level 3.7 g/dL (3.5-5.2); Alkaline Phosphatase 98 U/L (40-130); Anion Gap 13.6 (5-19); Aspartate Amino Transferase 17 U/L (0-40); Blood Urea Nitrogen 17 mg/dL (8-23); Calcium 8.9 mg/dL (8.5-10.5); Carbon Dioxide 25 mmol/L (22-29); Chloride 102 mmol/L (98-107); Creatinine Clr Calc Pharmacy 64.9993; Globulin 3.4 g/dL (1.3-4.6); Glucose 118 mg/dL (65-115); Osmolality Calculated 287 mOsm/kg (285-295); Potassium 3.6 mmol/L (3.5-5.1); Prostate Specific Antigen < 0.014 ng/mL (0-4); Sodium 137 mmol/L (136-145); Testosterone Total 21.3 ng/dL (193-740); Total Bilirubin 0.4 mg/dL (0.15-1.2); Total Protein 7.1 g/dL (6.6-8.7)
[2024-09-23] MEDS: leuprolide 22.5 mg Kit IM (09:10)
--- NOTE | 2024-09-23 09:10 | PC.PHAR ---
SPOKE WITH IAIN, HE ACCIDENTALLY STOPPED THE LUPRON PRIOR TO JAYLA ADMINISTERING TODAY'S TREATMENT. IAIN WISHES FOR PATIENT TO RECEIVE TREATMENT TODAY THEN STOP ANY FUTURE TREATMENTS. I PLACED A ONE TIME ORDER ON THE PATIENT'S CHART SINCE THE TREATMENT PLAN HAS BEEN STOPPED.
== END 2024-09-24 23:59 | disposition home or self-care (01) ==
PROVIDERS: Nurse Practitioner Family; PCP Family Medicine; Visit Provider Internal Medicine
DX: Z51.11 Encounter for antineoplastic chemotherapy (principal); C61 Malignant neoplasm of prostate; I71.40 Abdominal aortic aneurysm, without rupture, unspecified; Z79.818 Long term (current) use of other agents affecting estrogen receptors and estrogen levels; Z87.891 Personal history of nicotine dependence; Z92.3 Personal history of irradiation; Z85.21 Personal history of malignant neoplasm of larynx; Z79.899 Other long term (current) drug therapy; N28.1 Cyst of kidney, acquired
CPT/HCPCS: 36415; 80053; 84153; 84403; 85025; 96402; 99213; J9217

== ENCOUNTER 2024-10-14 08:14 | Oncology outpatient (recurring) (ONCR) | payer OTHER, SELFPAY ==
--- NOTE | 2024-10-14 08:45 | CT_ITS ---
WS: [id number] CT ANGIOGRAPHY ABDOMEN AND PELVIS HISTORY: AAA TECHNIQUE: CT angiogram is performed during IV injection. Reformation images reviewed. All CT scans at [facility] use at least one of these dose optimization techniques: automated exposure control; mA and/or kV adjustment per patient size (includes targeted exams where dose is matched to clinical indication); or iterative reconstruction. CONTRAST: Omnipaque 350; 100 mL IV. DLP: 432.39 mGy.cm COMPARISON: 03/01/2024 Lung bases are clear. Heart size is normal. Small hiatal hernia. Abdominal aorta: Moderate atherosclerotic plaque with ectasia involving the abdominal aorta through the iliac arteries. Reidentified is the fusiform infrarenal abdominal aortic aneurysm which extends over a length of 6.5 cm. Maximum diameter 4.6 cm which is stable. Asymmetric intraluminal thrombus rafy uring up to 2.1 cm. Aneurysm tapers to the bifurcation. Atherosclerotic plaque continues into the iliac arteries. Atherosclerotic plaque in the SMA and celiac axis. No high-grade stenosis or occlusion. Bilateral main renal arteries are identified and normally opacified. Accessory renal artery on the RIGHT. Kidneys are enhancing normally and contain bilateral cysts. Unremarkable liver, spleen and gallbladder. No adrenal mass. Negative pancreas. No intrahepatic duct dilatation. No GI tract obstruction. Sigmoid diverticulosis. Urinary bladder is overly distended measuring 12.2 cm in length. Mild diffuse bladder wall thickening and irregularity. Changes in the urinary bladder were described on the prior study and may be chronic and related to an outlet obstruction. It would be difficult to exclude uroepithelial lesion. There is no focal area of soft tissue thickening. Enlarged heterogeneous prostate gland encroaches into the bladder. No ascites or adenopathy. Ventral abdominal wall hernia contains fat. L3 anterolisthesis by 5 mm. Advanced degenerative disc disease at L4-5 and L5-S1. CT/CT angio abdomen pelvis [id number] IMPRESSION: 1. Stable infrarenal abdominal aortic aneurysm with a maximal transverse diame ter of 4.6 cm. No interval progression since 03/01/2024. 2. No ascites or adenopathy. 3. [place] distended urinary bladder. Diffuse bladder wall irregularity but no focal mass. Suspect bladder outlet obstruction and bladder hypertrophy. Prostat e gland is enlarged and heterogeneous. 4. Normal renal enhancement. Bilateral renal cysts. Accessory renal artery on the RIGHT.
[2024-10-14] MEDS: iohexol 350 mg/mL 500 mL Btl (per mL) IV (08:55)
== END 2024-10-25 23:59 | disposition home or self-care (01) ==
LOC: RAD 08:17 → ONCMED 10-18 09:46
PROVIDERS: PCP Family Medicine; Visit Provider Internal Medicine
DX: Z51.11 Encounter for antineoplastic chemotherapy (principal); N28.1 Cyst of kidney, acquired; I71.40 Abdominal aortic aneurysm, without rupture, unspecified; Z51.12 Encounter for antineoplastic immunotherapy; C61 Malignant neoplasm of prostate; C32.0 Malignant neoplasm of glottis; Z79.899 Other long term (current) drug therapy; Z92.3 Personal history of irradiation; N32.89 Other specified disorders of bladder; Q61.02 Congenital multiple renal cysts; J43.9 Emphysema, unspecified; G31.89 Other specified degenerative diseases of nervous system; C79.82 Secondary malignant neoplasm of genital organs
CPT/HCPCS: 74174

== ENCOUNTER → 2024-11-10 14:56 | Outpatient (BNVA) | payer OTHER, SELFPAY | PROVIDERS: PCP Family Medicine; Visit Provider Internal Medicine | DX: R07.9 Chest pain, unspecified (principal); R06.09 Other forms of dyspnea; E78.2 Mixed hyperlipidemia; I71.40 Abdominal aortic aneurysm, without rupture, unspecified; Z87.891 Personal history of nicotine dependence; R06.02 Shortness of breath | CPT/HCPCS: 99214 ==

== ENCOUNTER 2024-11-12 07:17 | Oncology outpatient (recurring) (ONCR) | payer OTHER, SELFPAY ==
--- NOTE | 2024-11-12 07:45 | USCV_ITS ---
Yahaira Reyes Age: 74 Gender: M : 1950 Exam Date: 11/12/2024 07:58 Ordering Phys: Michael Silva M.D ([email or web address]) Technologist: SHOBHA Exam Location: [facility] [place] Indication: SoB BP: 108 / 60 HR: 66 Rhythm: Sinus Technical Quality: Adequate MEASUREMENTS (Male / Female) Normal Values 2D ECHO LV Diastolic Diameter PLAX 4.7 cm 4.2 - 5.9 / 3.9 - 5.3 cm IVS Diastolic Thickness 1.1 cm 0.6 - 1.0 / 0.6 - 0.9 cm IVS Systolic Thickness 1.4 cm LVPW Diastolic Thickness 1.1 cm 0.6 - 1.0 / 0.6 - 0.9 cm LVPW Systolic Thickness 1.3 cm LVOT Diameter 2.1 cm LV Ejection Fraction 2D Teich 62.6 % LV Ejection Fraction MOD 4C 63.8 % LV Ejection Fraction MOD 2C 55.2 % LV Ejection Fraction 2C AL 57.2 % LA Diameter 3.1 cm RA Systolic Volume 4C AL 29.0 ml RA Systolic Volume 4C MOD 28.7 ml LA Sys Volume AL 33.1 cm cubed LA Sys Volume Index AL 17.2 cm cubed/m squared Aorta at Sinotubular Diameter 3.0 cm IVC Diameter 1.8 cm M-MODE LA Ao Ratio MM 1.0 AV Cusp Separation MM 1.8 cm DOPPLER AV Peak Velocity 143.0 cm/s LVOT Peak Velocity 114.0 cm/s AV Area Cont Eq vti 2.9 cm squared AV Area Cont Eq pk 2.8 cm squared MV Peak Velocity 75.0 cm/s MV Area PHT 2.7 cm squared Mitral E to A Ratio 0.6 TR Peak Velocity 242.0 cm/s TR Peak Gradient 23.4 mmHg PV Peak Velocity 140.0 cm/s FINDINGS Left Ventricle Left ventricle is normal size. LV systolic function is normal with EF of 55-60%. No regional wall motion abnormalities are seen Right Ventricle Normal in size and function Right Atrium Normal in size Left Atrium Normal in size Mitral Valve Structurally normal mitral valve. Trace mitral regurgitation Aortic Valve Structurally normal aortic valve. No significant stenosis or regurgitation. Tricuspid Valve Insufficient TR jet to calculate RVSP Pulmonic Valve Not well visualized Pericardium Normal Aorta Normal in size IVC Appears to be normal CONCLUSIONS LV systolic function is normal with EF of 55-60%. Trace mitral regurgitation. No comparison studies are available Michael Silva MD (Electronically Signed) Final Date: 28 Nov 2024 14:19 S
== END 2024-11-24 23:59 | disposition home or self-care (01) ==
LOC: RAD 07:19 → ONCMED 10:23
PROVIDERS: PCP Family Medicine; Visit Provider Internal Medicine
DX: Z51.11 Encounter for antineoplastic chemotherapy (principal); N28.1 Cyst of kidney, acquired; I71.40 Abdominal aortic aneurysm, without rupture, unspecified; Z51.12 Encounter for antineoplastic immunotherapy; C61 Malignant neoplasm of prostate; C32.0 Malignant neoplasm of glottis; Z79.899 Other long term (current) drug therapy; Z92.3 Personal history of irradiation; N32.89 Other specified disorders of bladder; Q61.02 Congenital multiple renal cysts; J43.9 Emphysema, unspecified; G31.89 Other specified degenerative diseases of nervous system; C79.82 Secondary malignant neoplasm of genital organs; R06.02 Shortness of breath
CPT/HCPCS: 93306

== ENCOUNTER 2024-11-15 09:57 | Outpatient (CLI) | payer OTHER, SELFPAY ==
[2024-11-15 10:22] VITALS: BMI 26.9
--- NOTE | 2024-11-15 10:26 | ECG_ITS ---
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 Interpretive Statements Lung unchanged pre/post procedure; Intraprocedure shortess of breath; Symptoms resoled by discharge PROCEDURE: At the baseline, the EKG revealed normal sinus rhythm with normal ST Ts.. The baseline heart was 67 bpm with a blood pressue of 138/83 mm of Hg Lexiscan was infused over a period of 20 seconds. A total of 0.4 milligrams of Lexiscan was infused. The stress phase was continued for a total of 5 minutes. Heart rate at the end of the stress phase was 75 bpm with a blood pressure 120/77 mm of Hg. The EKG at the peak infusion revealed no significant changes. Sestamibi was injected 20 seconds after the Lexiscan infusion. Heart rate at the end of the recovery phase was 73 bpm with a blood pressure of 120/70 mm of Hg. CONCLUSION: 1. No significant EKG changes with the LexiScan infusion 2. No LexiScan induced chest pain or cardiac arrhythmia 3. Normal blood pressure and heart rate response 4. Sestamibi/sestamibi perfusion scan pending; see separate report. Electronically Signed On 11-21-2024 13:28:51 CDT by Maverick Shelley M.D. [email or web address]
--- NOTE | 2024-11-15 10:27 | NMCV_ITS ---
NM christopher perf SPECT r/s* [id number] Yahaira Reyes Age: 74 Gender: M : 1950 Exam Date: 11/15/2024 12:14 Ordering Phys: Michael Silva M.D ([email or web address]) Technologist: LEIDA Crawford Exam Location: [facility] Indications: cp STRESS TEST [facility] IMAGE PROTOCOL Rest/Stress 1 Lexiscan Day Radiopharmaceutical Dose (mCi) Administration Site Administered by Rest: Tc-99m 11 IV LEIDA Crawford Sestamibi Stress:Tc-99m 32.3 IV LEIDA Webb Sestamibi Rest: 15-Nov-2024 60 Discovery 630 Stress: 15-Nov-2024 30 Discovery 630 0.4mg Lexiscan. Images obtained in supine and prone position. SPECT RESULTS Technical Quality: Good Raw Data Analysis: Normal Image Corrections: No attenuation or motion correction applied Summed Stress Score: 1 Summed Rest Score: 2 Summed Difference Score: 1 PERFUSION FINDINGS A small area of slightly decreased tracer uptake in the mid inferolateral region with some reversibility. However with the prone imaging, there was no significant reversibility FUNCTIONAL RESULTS (calculated via Gated SPECT) Stress Image LV EF (%): 80 Stress EDV (mL):55 TID: 0.81 Stress ESV (mL):11 FUNCTIONAL FINDINGS: Segmental wall motion analysis revealing no gross wall motion abnormalities IMPRESSIONS 1. Myocardial perfusion imaging revealing a small area of slight reversibility in the mid inferolateral region, inconsistent with the prone imaging, most likely artifactual 2. Normal LV ejection fraction of 80%. 3. LV wall motion analysis revealing no gross wall motion abnormalities. 4. Normal LV volume Low probability for coronary ischemia, based on the above findings No similar previous studies are available for comparison Dr Maverick Shelley MD [facility] (Electronically Signed) Final Date: 15 November 2024 12:47 S
[2024-11-15] MEDS: regadenoson 0.4 Mg/5 ml Syringe IVP (11:39)
[2024-11-15 12:14] VITALS: BP 138/84; PULSE 82
== END 2024-11-15 09:58 | disposition home or self-care (01) ==
LOC: CDL 10:00
PROVIDERS: PCP Family Medicine; Visit Provider Internal Medicine
DX: R07.9 Chest pain, unspecified (principal); R93.1 Abnormal findings on diagnostic imaging of heart and coronary circulation
CPT/HCPCS: 36415; 78452; 93017; 96374; A9500; J2785

== ENCOUNTER 2024-12-13 12:56 | Oncology outpatient (recurring) (ONCR) | payer OTHER, SELFPAY ==
[2024-12-13 13:18] LABS: Basophils % 0.6 %; Eosinophils # 0.3 10^3/uL (0.0-0.8); Eosinophils % 3.7 %; Hematocrit 41.7 % (37-53); Lymphocytes # 1.7 10^3/uL (0.8-4.8); Mean Corpuscular HGB Conc 32.6 g/dL (30-55); Mean Corpuscular Hemoglobin 29.2 pg (27-33); Mean Corpuscular Volume 89.5 fl (82-101); Mean Platelet Volume 9.3 fL (7.4-10.4); Monocytes # 0.4 10^3/uL (0.2-0.9); Monocytes % 5.9 %; Neutrophils # 4.46 10^3/uL (1.8-7.7); Neutrophils % 64.1 %; Nucleated Red Blood Cells % 0 %; Platelet Count 266 10^3/cmm (157-399); Red Blood Count 4.66 10^6/uL (3.85-5.65); Red Cell Distribution Width 15.4 % (12.1-15.1); White Blood Count 6.96 10^3/uL (3.29-11.43)
[2024-12-13 13:44] LABS: Alanine Aminotransferase 14 U/L (0-41); Albumin Level 3.7 g/dL (3.5-5.2); Alkaline Phosphatase 95 U/L (40-130); Anion Gap 16.8 (5-19); Aspartate Amino Transferase 19 U/L (0-40); Blood Urea Nitrogen 14 mg/dL (8-23); Carbon Dioxide 24 mmol/L (22-29); Chloride 102 mmol/L (98-107); Creatinine Clr Calc Pharmacy 55.0954; Globulin 3.6 g/dL (1.3-4.6); Glucose 117 mg/dL (65-115); Lactate Dehydrogenase 176 U/L (135-225); Osmolality Calculated 290 mOsm/kg (285-295); Potassium 3.8 mmol/L (3.5-5.1); Sodium 139 mmol/L (136-145); Testosterone Total 14.1 ng/dL (193-740); Total Bilirubin 0.4 mg/dL (0.15-1.2); Total Protein 7.3 g/dL (6.6-8.7)
[2024-12-13 13:47] LABS: Prostate Specific Antigen < 0.014 ng/mL (0-4)
== END 2024-12-25 23:59 | disposition home or self-care (01) ==
LOC: ONCMED 12:57
PROVIDERS: Internal Medicine; PCP Family Medicine; Visit Provider Internal Medicine
DX: Z51.11 Encounter for antineoplastic chemotherapy (principal); N28.1 Cyst of kidney, acquired; I71.40 Abdominal aortic aneurysm, without rupture, unspecified; Z51.12 Encounter for antineoplastic immunotherapy; C61 Malignant neoplasm of prostate; C32.0 Malignant neoplasm of glottis; Z79.899 Other long term (current) drug therapy; Z92.3 Personal history of irradiation; N32.89 Other specified disorders of bladder; Q61.02 Congenital multiple renal cysts; J43.9 Emphysema, unspecified; G31.89 Other specified degenerative diseases of nervous system; C79.82 Secondary malignant neoplasm of genital organs; R06.02 Shortness of breath
CPT/HCPCS: 36415; 80053; 83615; 84153; 84403; 85025; 99214

== ENCOUNTER 2024-12-30 15:40 | Oncology outpatient (recurring) (ONCR) | payer OTHER, SELFPAY | END 2025-01-24 23:59 | disposition home or self-care (01) | PROVIDERS: PCP Family Medicine; Visit Provider Internal Medicine | DX: C61 Malignant neoplasm of prostate (principal); C32.0 Malignant neoplasm of glottis; N28.1 Cyst of kidney, acquired; I71.40 Abdominal aortic aneurysm, without rupture, unspecified; Z87.891 Personal history of nicotine dependence; Z79.899 Other long term (current) drug therapy; Z92.3 Personal history of irradiation | CPT/HCPCS: 99213 ==

== ENCOUNTER 2025-02-04 09:02 | Oncology outpatient (recurring) (ONCR) | payer OTHER, SELFPAY ==
[2025-02-04 09:23] LABS: Hematocrit 43.3 % (37-53); Hemoglobin 14.30 g/dL (11.27-16.99); Mean Corpuscular HGB Conc 33.0 g/dL (30-55); Mean Corpuscular Hemoglobin 29.9 pg (27-33); Mean Corpuscular Volume 90.4 fl (82-101); Nucleated Red Blood Cells % 0 %; Platelet Count 277 10^3/cmm (157-399); Red Blood Count 4.79 10^6/uL (3.85-5.65); White Blood Count 7.91 10^3/uL (3.29-11.43)
[2025-02-04 09:54] LABS: Alanine Aminotransferase 13 U/L (0-41); Albumin Level 4.1 g/dL (3.5-5.2); Alkaline Phosphatase 104 U/L (40-130); Anion Gap 17.8 (5-19); Aspartate Amino Transferase 19 U/L (0-40); Blood Urea Nitrogen 20 mg/dL (8-23); Calcium 9.4 mg/dL (8.5-10.5); Carbon Dioxide 25 mmol/L (22-29); Chloride 101 mmol/L (98-107); Creatinine Clr Calc Pharmacy 50.5976; Globulin 3.8 g/dL (1.3-4.6); Glucose 101 mg/dL (65-115); Osmolality Calculated 293 mOsm/kg (285-295); Potassium 3.8 mmol/L (3.5-5.1); Sodium 140 mmol/L (136-145); Total Protein 7.9 g/dL (6.6-8.7)
[2025-02-04 10:12] LABS: Prostate Specific Antigen < 0.014 ng/mL (0-4)
[2025-02-04] MEDS: leuprolide 22.5 mg Kit IM (10:14)
== END 2025-02-24 23:59 | disposition home or self-care (01) ==
PROVIDERS: Internal Medicine; PCP Family Medicine; Visit Provider Internal Medicine
DX: Z51.11 Encounter for antineoplastic chemotherapy (principal); C61 Malignant neoplasm of prostate; C32.0 Malignant neoplasm of glottis; N28.1 Cyst of kidney, acquired; N02.9 Recurrent and persistent hematuria with unspecified morphologic changes; Z87.891 Personal history of nicotine dependence
CPT/HCPCS: 36415; 80053; 83615; 84153; 84403; 85025; 96402; 99214; J9217

== ENCOUNTER 2025-05-05 12:56 | Oncology outpatient (recurring) (ONCR) | payer OTHER, SELFPAY ==
[2025-05-05 13:38] LABS: Hematocrit 41.2 % (37-53); Hemoglobin 13.40 g/dL (11.27-16.99); Mean Corpuscular HGB Conc 32.5 g/dL (30-55); Mean Corpuscular Hemoglobin 29.8 pg (27-33); Mean Corpuscular Volume 91.8 fl (82-101); Nucleated Red Blood Cells % 0 %; Platelet Count 316 10^3/cmm (157-399); Red Blood Count 4.49 10^6/uL (3.85-5.65); White Blood Count 7.31 10^3/uL (3.29-11.43)
[2025-05-05 14:08] LABS: Alanine Aminotransferase 15 U/L (0-41); Albumin Level 4.0 g/dL (3.5-5.2); Alkaline Phosphatase 73 U/L (40-130); Anion Gap 14.0 (5-19); Aspartate Amino Transferase 22 U/L (0-40); Blood Urea Nitrogen 12 mg/dL (8-23); Calcium 8.7 mg/dL (8.5-10.5); Carbon Dioxide 28 mmol/L (22-29); Chloride 102 mmol/L (98-107); Globulin 3.7 g/dL (1.3-4.6); Glucose 97 mg/dL (65-115); Osmolality Calculated 290 mOsm/kg (285-295); Potassium 4.0 mmol/L (3.5-5.1); Sodium 140 mmol/L (136-145); Total Protein 7.7 g/dL (6.6-8.7)
[2025-05-05 14:10] LABS: Prostate Specific Antigen < 0.014 ng/mL (0-4)
== END 2025-05-27 23:59 | disposition home or self-care (01) ==
PROVIDERS: Nurse Practitioner Family; PCP Family Medicine; Visit Provider Internal Medicine
DX: Z08 Encounter for follow-up examination after completed treatment for malignant neoplasm (principal); Z85.46 Personal history of malignant neoplasm of prostate; Z85.21 Personal history of malignant neoplasm of larynx; N28.1 Cyst of kidney, acquired; R31.9 Hematuria, unspecified; Z87.891 Personal history of nicotine dependence; Z92.3 Personal history of irradiation
CPT/HCPCS: 36415; 80053; 84153; 85025; 99214

== ENCOUNTER 2025-07-12 09:40 | Oncology outpatient (recurring) (ONCR) | payer OTHER, SELFPAY ==
--- NOTE | 2025-07-12 10:30 | CTR_ITS ---
PROCEDURE INFORMATION: Exam: CTA Chest With Contrast CTA Abdomen With Contrast Exam date and time: 07/12/2025 10:54 AM Age: 75 years old Clinical indication: Condition or disease; Other: Aaa; Arterial aneurysm; Without rupture; Prostate and throat cancer; Additional info: Aaa, to be done in [address] Silva TECHNIQUE: Imaging protocol: Computed tomographic angiography of the chest with contrast. Exam focused on the arteries. Computed tomographic angiography of the abdomen with contrast. Exam focused on the arteries. 3D rendering (Not supervised by radiologist): MIP and/or 3D reconstructed images were created by the technologist. Radiation optimization: All CT scans at this facility use at least one of these dose optimization techniques: automated exposure control; mA and/or kV adjustment per patient size (includes targeted exams where dose is matched to clinical indication); or iterative reconstruction. Contrast material: OMNI 100; Contrast volume: 100 ml; Contrast route: INTRAVENOUS (IV); COMPARISON: CT angio abdomen pelvis [id number] 10/14/2024 08:41 AM and previous and previous RADIATION DOSE METRICS: Total DLP (mGy-cm): 1143.84 FINDINGS: VASCULATURE: Pulmonary arteries: Enlarged left main pulmonary artery. No occlusive pulmonary embolism. Aorta: Ascending aorta measures 3.4 x 3.3 cm. Infrarenal abdominal aortic aneurysm measuring 4.9 x 5.2 cm (previously up to 4.6 cm). Probable mixing of blood and contrast involving the anterior aspect of the distal thoracic aorta. Admixing of blood within the distal lumen of the abdominal aortic aneurysm is noted. There is an abrupt change in contrast enhancement in the distal abdominal aortic aneurysm and iliac vessels, owing to delayed imaging in this area by the technologist to include the bifurcation. No discrete aortic dissection is seen. Atherosclerotic vascular disease. Celiac and mesenteric arteries: Atherosclerotic calcifications of the origin of the celiac axis and SMA without high-grade stenosis. Renal arteries: No occlusion or significant stenosis. CHEST: Lungs: Mild central bronchial wall thickening. Diffuse emphysematous changes throughout both lungs. Biapical bulla. Pleural spaces: Unremarkable. No pneumothorax. No pleural effusion. Heart: Unremarkable. No cardiomegaly. No pericardial effusion. ABDOMEN AND PELVIS: Liver: No mass. Gallbladder and biliary ducts: Unremarkable. No calcified stones. No ductal dilation. Pancreas: Unremarkable. No mass. No ductal dilation. Spleen: Splenic calcifications. Adrenal glands: Unremarkable. No mass. Kidneys: Bilateral renal cysts. Indeterminate complex lesion within the right kidney has been documented on the MRI from 02/28/2023 Stomach and bowel: Diverticulosis. Intraperitoneal space: Unremarkable. No free air. No significant fluid collection. Urinary bladder: Diffuse bladder wall thickening . Reproductive: Heterogenously enhancing enlarged prostate. Lymph nodes: Unremarkable. No enlarged lymph nodes. Bones/joints: Osteopenia. Degenerative changes of the spine with mild osteophytic lipping. Soft tissues: Unremarkable. Other findings: [id number] scattered stool. CT/[place] ang[place] chest abd [id number] IMPRESSION: 1. Mild central bronchial wall thickening. Diffuse emphysematous changes throughout both lungs. 2. Ascending aorta measures 3.4 x 3.3 cm. 3. Persistently enlarged left main pulmonary artery. 4. Infrarenal abdominal aortic aneurysm measures 4.9 x 5.2 cm, increased in size (previously up to 4.6 cm). 5. Diffuse bladder wall thickening . 6. Heterogenously enhancing enlarged prostate. COMMENTS: 1. Consistent with the [employer]'s Incidental Findings Committee white paper (J Am To Radiol 2018): Any incidental renal lesion less than 1 cm or classified as too small to characterize, or any incidental cystic renal lesion characterized as simple-appearing, is likely benign. No follow-up imaging is recommended for these lesions per consensus recommendations based on imaging criteria. 2. The presence of pulmonary emphysema on CT is an independent risk factor for lung cancer. In the absence of a history or active diagnosis of lung cancer, it is recommended that this patient with emphysema be evaluated for enrollment in a low dose CT lung cancer screening program.
[2025-07-12] MEDS: iohexol 350 mg/mL 500 mL Btl (per mL) IV (11:04)
== END 2025-07-27 23:59 | disposition home or self-care (01) ==
LOC: ONCMED 09:43
PROVIDERS: PCP Family Medicine; Visit Provider Internal Medicine
DX: Z08 Encounter for follow-up examination after completed treatment for malignant neoplasm (principal); Z85.46 Personal history of malignant neoplasm of prostate; Z85.21 Personal history of malignant neoplasm of larynx; N28.1 Cyst of kidney, acquired; R31.9 Hematuria, unspecified; Z87.891 Personal history of nicotine dependence; Z92.3 Personal history of irradiation; I71.40 Abdominal aortic aneurysm, without rupture, unspecified
CPT/HCPCS: 71275; 74175